=== PATIENT | female | born 1985 | race Caucasian/White ===

== ENCOUNTER 2023-08-25 20:44 | Emergency (ER) | payer BC, SELFPAY ==
[2023-08-25 20:50] VITALS: BP 144/93; PULSE 85; RESP 18; TEMP 36.9; O2SAT 99; BMI 30.7
--- NOTE | 2023-08-25 20:54 | ED.ABDPAIN1 ---
Documented by User: ABILIO Mast 08/25/23 22:00 HPI - Abdominal Pain General Chief Complaint: Abdominal Pain Stated Complaint: ABdominal Pain Time Seen by Provider: 08/25/23 20:48 Source: patient and family History of Present Illness HPI narrative: patient is a 38-year-old female who presents to the emergency department for the evaluation of abdominal pain that began yesterday. She states yesterday she had sharp pain in the epigastrium which resolved, today she was feeling achy pain in the low abdomen but it has become more significant in the last several hours. She states she has been having diarrhea for the last six months. She had one episode of emesis yesterday. She has had no fevers, urinary symptoms. She has had previous cholecystectomy and has a history of GERD. She is scheduled for an endoscopy/colonoscopy in the next two weeks due to unintended weight loss. She is not concerned for . No medications taken prior to arrival. Related Data Home Medications Medication Instructions Recorded Confirmed albuterol sulfate 90 mcg/actuation inhalation 08/25/23 aerosol inhaler ondansetron 4 mg disintegrating mg 08/25/23 tablet pantoprazole 40 mg tablet,delayed mg PO 08/25/23 release Allergies Allergy/AdvReac Type Severity Reaction Status Date / Time No Known Drug Allergies Allergy Verified 08/25/23 20:55 Review of Systems ROS Constitutional Denies: fever or chills Cardiovascular Denies: chest pain Respiratory Denies: shortness of breath or cough Gastrointestinal Reports: abdominal pain, vomiting and diarrhea Genitourinary Denies: painful urination Musculoskeletal Denies: back pain or neck pain Integumentary/Breast Denies: rash Neurological Denies: headache Hematologic/Lymphatic Denies: easy bruising [facility] Medical History (Updated 08/25/23 @ 23:30 by Trupti Haines MD) FH: cholecystectomy ?Z83.79 - Family history of other diseases of the digestive system (ICD-10) Exam Narrative Exam Narrative: Gen.: Awake, alert, in no distress Head: Normocephalic, atraumatic ENT: Moist mucous membranes Respiratory: No respiratory distress, lungs clear bilaterally Cardio: Regular rate and rhythm Gastrointestinal: Abdomen is soft, nondistended and minimally tender in the epigastrium, minimally tender in the left lower quadrant of the abdomen, no pain out of proportion on exam, no guarding or rebound Extremities: Moves extremities equally Psych: Normal mood and affect Neuro: No focal neuro deficit Skin: Warm, dry, intact Constitutional Vital Signs, click to edit/add: Last Vital Signs Temp 98.4 F 08/25/23 20:50 Pulse 85 08/25/23 20:50 Resp 18 08/25/23 20:50 BP 144/93 H 08/25/23 20:50 Pulse Ox 99 08/25/23 20:50 O2 Del Method Room Air 08/25/23 20:50 Course Vital Signs Vital signs: Vital Signs Temperature 98.4 F 08/25/23 20:50 Pulse Rate 85 08/25/23 20:50 Respiratory Rate 18 08/25/23 20:50 Blood Pressure 144/93 H 08/25/23 20:50 Pulse Oximetry 99 08/25/23 20:50 Oxygen Delivery Method Room Air 08/25/23 20:50 Temperature 98.4 F 08/25/23 20:50 Pulse Rate 85 08/25/23 20:50 Respiratory Rate 18 08/25/23 20:50 Blood Pressure 144/93 H 08/25/23 20:50 Pulse Oximetry 99 08/25/23 20:50 Oxygen Delivery Method Room Air 08/25/23 20:50 MDM - Abdominal Pain MDM Narrative Medical decision making narrative: 2199: patient medicated with IV fluids, morphine, Zofran, Levsin. Lab studies reviewed and noted with white blood cell count 12.6, potassium 3.1 which was replenished with oral potassium chloride. Bilirubin is minimally elevated, patient has had a previous cholecystectomy and LFTs are within normal limits. CT of the abdomen and pelvis is pending at this time, case turned over to attending physician for disposition. Medical Records Attestation: I reviewed the patient's medical records. Lab Data Attestation: I reviewed the patient's lab results. Labs: Lab Results 08/25/23 08/25/23 Range/Units 20:55 21:25 WBC 12.6 H (4.0-11.0) 10^3/uL RBC 4.51 (4.20-5.40) 10^6/uL Hgb 14.4 (12.0-16.0) g/dL Hct 43.4 (36.0-48.0) % MCV 96.2 (81.0-99.0) fL MCH 31.9 (26.7-34.0) pg MCHC 33.2 (29.9-35.2) g/dL RDW 12.5 (11.0-15.0) % Plt Count 333 (150-450) 10^3/uL MPV 9.3 L (9.5-13.5) fL Neut % (Auto) 67.8 (43.0-75.0) % Lymph % (Auto) 23.4 (20.5-60.0) % [place] % (Auto) 7.0 (1.7-12.0) % Eos % (Auto) 1.3 (0.9-7.0) % Baso % (Auto) 0.2 (0.2-2.0) % Neut # (Auto) 8.6 H (1.4-6.5) 10^3/uL Lymph # (Auto) 3.0 (1.2-3.8) 10^3/uL [place] # (Auto) 0.9 H (0.3-0.8) 10^3/uL Eos # (Auto) 0.2 (0.0-0.7) 10^3/uL Baso # (Auto) 0.0 (0.0-0.1) 10^3/uL Abs Immat Gran (auto) 0.04 H (0.00-0.03) 10^3/uL Imm/Tot Granulo (auto) 0.3 (0.0-0.5) % Sodium 138 (136-145) mmol/L Potassium 3.1 L (3.5-5.1) mmol/L Chloride 103 (98-107) mmol/L Carbon Dioxide 27.4 (21.0-32.0) mmol/L Anion Gap 10.7 BUN 13.0 (7.0-18.0) mg/dL Creatinine 0.73 (0.55-1.02) mg/dL Est GFR ( Amer) >60 (>=60) Est GFR (Non-Af Amer) >60 (>=60) BUN/Creatinine Ratio 17.8 Glucose 102 (74-106) mg/dL Lactate 0.7 (0.4-2.0) mmol/L Calcium 8.6 (8.5-10.1) mg/dL Total Bilirubin 1.5 H (0.2-1.0) mg/dL AST 19 (15-37) U/L ALT 30 (14-59) U/L Alkaline Phosphatase 77 (46-116) U/L Total Protein 7.2 (6.4-8.2) g/dL Albumin 3.9 (3.4-5.0) g/dL Globulin 3.3 g/dL Albumin/Globulin Ratio 1.2 Lipase 36.0 (16.0-77.0) U/L Serum HCG, Qual Negative (NEGATIVE) Urine Color Lt. yellow (YELLOW) Urine Clarity Clear (CLEAR) Urine pH 6.0 (5.0-9.0) Ur Specific [place] 1.010 (1.005-1.025) Urine Protein 30 A (NEG/TRACE) mg/dL Urine Glucose (UA) Negative (NEGATIVE) mg/dL Urine Ketones Negative (NEGATIVE) mg/dL Urine Occult Blood Large A (NEGATIVE) Urine Nitrite Negative (NEGATIVE) Urine Bilirubin Negative (NEGATIVE) Urine Urobilinogen 0.2 (0.2-1.0) EU/dL Ur Leukocyte Esterase Trace A (NEGATIVE) Urine RBC >100 A (0-2) #/HPF Urine WBC 2-5 A (NONE SEEN) #/HPF Ur Squamous Epith Cells Moderate A (NONE/RARE) #/LPF Urine Crystals Seen A (None Seen) #/HPF Calcium Oxalate Crystal Rare Urine Bacteria None seen (NONE SEEN) #/HPF Urine Casts None seen (NONE SEEN) #/LPF Urine Mucus None seen (NONE SEEN) Discharge Plan Discharge Chief Complaint: Abdominal Pain Clinical Impression: Abdominal pain, Ureteritis, Kidney stone on left side Patient Disposition: Home, Self-Care Time of Disposition Decision: 23:29 Condition: Good Prescriptions / Home Meds: No Action pantoprazole 40 mg tablet,delayed release (DR/EC) PO albuterol sulfate 90 mcg/actuation HFA aerosol inhaler INHALATION ondansetron 4 mg tablet,disintegrating Instructions: Kidney Stones (ED) Additional Instructions: Follow-up with Dr. Manley as soon as an appointment is available. Antibiotic as directed, pain medication and nausea medication as needed. Drink plenty of fluids. Return to emergency department for intractable pain, fevers, chills, intractable nausea vomiting or any concerns. Stand Alone Forms: Portal Instructions Referrals: BRENDA HUERTA [Primary Care Provider] - 1 week Documented by User: Trupti Haines MD 08/25/23 23:30 HPI - Abdominal Pain General Chief Complaint: Abdominal Pain Stated Complaint: ABdominal Pain Time Seen by Provider: 08/25/23 20:48 Related Data Home Medications Medication Instructions Recorded Confirmed albuterol sulfate 90 mcg/actuation inhalation 08/25/23 aerosol inhaler ondansetron 4 mg disintegrating mg 08/25/23 tablet pantoprazole 40 mg tablet,delayed mg PO 08/25/23 release Allergies Allergy/AdvReac Type Severity Reaction Status Date / Time No Known Drug Allergies Allergy Verified 08/25/23 20:55 PFSH PFSH Medical History (Updated 08/25/23 @ 23:30 by Trupti Haines MD) FH: cholecystectomy ?Z83.79 - Family history of other diseases of the digestive system (ICD-10) Exam Constitutional Vital Signs, click to edit/add: Last Vital Signs Temp 98.4 F 08/25/23 20:50 Pulse 85 08/25/23 20:50 Resp 18 08/25/23 20:50 BP 144/93 H 08/25/23 20:50 Pulse Ox 99 08/25/23 20:50 O2 Del Method Room Air 08/25/23 20:50 Course Vital Signs Vital signs: Vital Signs Temperature 98.4 F 08/25/23 20:50 Pulse Rate 85 08/25/23 20:50 Respiratory Rate 18 08/25/23 20:50 Blood Pressure 144/93 H 08/25/23 20:50 Pulse Oximetry 99 08/25/23 20:50 Oxygen Delivery Method Room Air 08/25/23 20:50 Temperature 98.4 F 08/25/23 20:50 Pulse Rate 85 08/25/23 20:50 Respiratory Rate 18 08/25/23 20:50 Blood Pressure 144/93 H 08/25/23 20:50 Pulse Oximetry 99 08/25/23 20:50 Oxygen Delivery Method Room Air 08/25/23 20:50 MDM - Abdominal Pain MDM Narrative Medical decision making narrative: 2199: patient medicated with IV fluids, morphine, Zofran, Levsin. Lab studies reviewed and noted with white blood cell count 12.6, potassium 3.1 which was replenished with oral potassium chloride. Bilirubin is minimally elevated, patient has had a previous cholecystectomy and LFTs are within normal limits. CT of the abdomen and pelvis is pending at this time, case turned over to attending physician for disposition. Patient was seen and evaluated in conjunction with the physician data control assistant. Please refer to her full H and P. Patient was seen and evaluated. She presents for evaluation of left lower quadrant abdominal pain. She has a history of kidney stones. She last had kidney stones approximately 3 years ago and followed up with Dr. Manley in [place]. Labs are reviewed. Urinalysis was reviewed. She was positive for trace leukocyte esterase but it is appears to be a contaminated sample with squamous epithelial cells. CT scan shows 2 kidney stones in the left ureter without hydronephrosis but with the radiologist diagnosis of ureteritis. She is medicated emergency department with 1 g of IV Rocephin for this finding on the CT scan. She does not require any additional pain medications at this time. She'll be discharged home with prescription for [place] after being given 2 to take home to use as needed until she can get her prescription filled, Zofran and 500 mg Keflex to take for the next 7 days. She is negative with this plan. She is hemodynamically stable for discharge. She is not toxic. She is not having any fevers or chills. Lab Data Labs: Lab Results 08/25/23 08/25/23 Range/Units 20:55 21:25 WBC 12.6 H (4.0-11.0) 10^3/uL RBC 4.51 (4.20-5.40) 10^6/uL Hgb 14.4 (12.0-16.0) g/dL Hct 43.4 (36.0-48.0) % MCV 96.2 (81.0-99.0) fL MCH 31.9 (26.7-34.0) pg MCHC 33.2 (29.9-35.2) g/dL RDW 12.5 (11.0-15.0) % Plt Count 333 (150-450) 10^3/uL MPV 9.3 L (9.5-13.5) fL Neut % (Auto) 67.8 (43.0-75.0) % Lymph % (Auto) 23.4 (20.5-60.0) % [place] % (Auto) 7.0 (1.7-12.0) % Eos % (Auto) 1.3 (0.9-7.0) % Baso % (Auto) 0.2 (0.2-2.0) % Neut # (Auto) 8.6 H (1.4-6.5) 10^3/uL Lymph # (Auto) 3.0 (1.2-3.8) 10^3/uL [place] # (Auto) 0.9 H (0.3-0.8) 10^3/uL Eos # (Auto) 0.2 (0.0-0.7) 10^3/uL Baso # (Auto) 0.0 (0.0-0.1) 10^3/uL Abs Immat Gran (auto) 0.04 H (0.00-0.03) 10^3/uL Imm/Tot Granulo (auto) 0.3 (0.0-0.5) % Sodium 138 (136-145) mmol/L Potassium 3.1 L (3.5-5.1) mmol/L Chloride 103 (98-107) mmol/L Carbon Dioxide 27.4 (21.0-32.0) mmol/L Anion Gap 10.7 BUN 13.0 (7.0-18.0) mg/dL Creatinine 0.73 (0.55-1.02) mg/dL Est GFR ( Amer) >60 (>=60) Est GFR (Non-Af Amer) >60 (>=60) BUN/Creatinine Ratio 17.8 Glucose 102 (74-106) mg/dL Lactate 0.7 (0.4-2.0) mmol/L Calcium 8.6 (8.5-10.1) mg/dL Total Bilirubin 1.5 H (0.2-1.0) mg/dL AST 19 (15-37) U/L ALT 30 (14-59) U/L Alkaline Phosphatase 77 (46-116) U/L Total Protein 7.2 (6.4-8.2) g/dL Albumin 3.9 (3.4-5.0) g/dL Globulin 3.3 g/dL Albumin/Globulin Ratio 1.2 Lipase 36.0 (16.0-77.0) U/L Serum HCG, Qual Negative (NEGATIVE) Urine Color Lt. yellow (YELLOW) Urine Clarity Clear (CLEAR) Urine pH 6.0 (5.0-9.0) Ur Specific [place] 1.010 (1.005-1.025) Urine Protein 30 A (NEG/TRACE) mg/dL Urine Glucose (UA) Negative (NEGATIVE) mg/dL Urine Ketones Negative (NEGATIVE) mg/dL Urine Occult Blood Large A (NEGATIVE) Urine Nitrite Negative (NEGATIVE) Urine Bilirubin Negative (NEGATIVE) Urine Urobilinogen 0.2 (0.2-1.0) EU/dL Ur Leukocyte Esterase Trace A (NEGATIVE) Urine RBC >100 A (0-2) #/HPF Urine WBC 2-5 A (NONE SEEN) #/HPF Ur Squamous Epith Cells Moderate A (NONE/RARE) #/LPF Urine Crystals Seen A (None Seen) #/HPF Calcium Oxalate Crystal Rare Urine Bacteria None seen (NONE SEEN) #/HPF Urine Casts None seen (NONE SEEN) #/LPF Urine Mucus None seen (NONE SEEN) Imaging Data CT scan - abdomen: Radiologist's impression: [facility] [place] [id number] CT Scan Report Signed Patient: JEFFREY YANG MR#: [id number] : 1985 Acct:[id number] Age/Sex: 38 / F ADM Date: 08/25/23 Loc: ER Attending Dr: Ordering Physician: Pradeep Nguyen Date of Service: 08/25/23 Procedure(s): CT abdomen pelvis w con Accession Number(s): [id number] cc: BRENDA HUERTA ~ The [address] [address] Patient Name: JEFFREY YANG MRN: [id number] date: 1985 Sex: F Assigned Patient Location: ER Current Patient Location: ED.MAIN Accession/Order Number: [id number] Exam Date: 08/25/2023 21:00 Report Date: 08/25/2023 23:00 At the request of: PRADEEP NGUYEN Procedure: CT abdomen pelvis w con CT ABDOMEN AND PELVIS WITH CONTRAST: INDICATION: Left lower quad abdominal pain. COMPARISON: 03/02/2019. TECHNIQUE:Multiple thin section transaxial slices were acquired through the abdomen and pelvis with intravenous contrast. Coronal and sagittal reconstructed images were reviewed. Oral contrastWas not administered. FINDINGS: LOWER CHEST: There are similar pleural-based pulmonary nodules in the lung bases. LIVER: The liver is unremarkable. GALLBLADDER AND BILIARY SYSTEM: There is intrahepatic ductal dilation. This is most likely due to the postsurgical status of the patient. The gallbladder surgically absent. SPLEEN: The spleen is unremarkable. PANCREAS: The pancreas is unremarkable. ADRENAL GLANDS: The adrenal glands are unremarkable. KIDNEYS AND URETERS: There are 2 mid left ureteral calculi located immediately adjacent to each other. The proximal calculus measures 4 mm in the more distal calculus measures 6 mm. There is periureteral fat stranding and enhancement of the wall of the ureter consistent with ureteritis. Despite the presence of the calculi, no significant hydronephrosis of the left kidney is appreciated. There is no right hydronephrosis. The right ureter is within normal limits without obstructing urologic calcifications. Simple bilateral renal cysts are present. VASCULATURE: Vascularity is unremarkable. PERITONEUM/RETROPERITONEUM: Peritoneum/retroperitoneum is unremarkable. LYMPH NODES: No suspicious lymphadenopathy. GASTROINTESTINAL TRACT: The bowel is normal in caliber.There is chronic colonic diverticulosis of the colon without acute inflammation.The appendix is mildly distended without definitive periappendiceal fat stranding. BLADDER: The urinary bladder is unremarkable. REPRODUCTIVE SYSTEM: Reproductive system is unremarkable. BODY WALL: Unremarkable. BONES: Osseous structures are unremarkable. CT/CT abdomen pelvis w con IMPRESSION: 1. There are 2 mid left ureteral calculi measuring 4 mm and 6 mm. There is periureteral fat stranding and wall enhancement consistent with ureteritis. Despite the presence of these calculi, there is no significant hydronephrosis of the left kidney. Discharge Plan Discharge Chief Complaint: Abdominal Pain Clinical Impression: Abdominal pain, Ureteritis, Kidney stone on left side Patient Disposition: Home, Self-Care Time of Disposition Decision: 23:29 Condition: Good Prescriptions / Home Meds: No Action pantoprazole 40 mg tablet,delayed release (DR/EC) PO albuterol sulfate 90 mcg/actuation HFA aerosol inhaler INHALATION ondansetron 4 mg tablet,disintegrating Instructions: Kidney Stones (ED) Additional Instructions: Follow-up with Dr. Manley as soon as an appointment is available. Antibiotic as directed, pain medication and nausea medication as needed. Drink plenty of fluids. Return to emergency department for intractable pain, fevers, chills, intractable nausea vomiting or any concerns. Stand Alone Forms: Portal Instructions Referrals: BRENDA HUERTA [Primary Care Provider] - 1 week
--- NOTE | 2023-08-25 21:10 | PC.NURSE ---
Pt presents to ER for abdominal pain Pt states the pain is currently located in the LLQ Pt states sometimes the pain is located in the upper abdomen but today it is the LLQ Pt is tearful at time arrival, states she has had diarrhea on and off for 6 months Pt states she has experienced an unexplained 40 lb weight loss so she is scheduled to have an upper and lower scope in 2 weeks from now Pt has a history of kidney stones, GERD, gall bladder removal, and just recently had her period Pt denies any chance of or urinary symptoms
[2023-08-25 21:19] LABS: Basophils Percent Auto 0.2 % (0.2-2.0); Eosinophils Absolute Auto 0.2 10^3/uL (0.0-0.7); Eosinophils Percent Auto 1.3 % (0.9-7.0); Hematocrit 43.4 % (36.0-48.0); Hemoglobin 14.4 g/dL (12.0-16.0); Immature Granulocytes Abs Auto 0.04 10^3/uL (0.00-0.03); Immature Granulocytes Pct Auto 0.3 % (0.0-0.5); Lymphocytes Percent Auto 23.4 % (20.5-60.0); Mean Corpuscular HGB Conc 33.2 g/dL (29.9-35.2); Mean Corpuscular Hemoglobin 31.9 pg (26.7-34.0); Mean Corpuscular Volume 96.2 fL (81.0-99.0); Mean Platelet Volume 9.3 fL (9.5-13.5); Monocytes Absolute Auto 0.9 10^3/uL (0.3-0.8); Neutrophils Absolute Auto 8.6 10^3/uL (1.4-6.5); Neutrophils Percent Auto 67.8 % (43.0-75.0); Platelet Count 333 10^3/uL (150-450); Red Blood Count 4.51 10^6/uL (4.20-5.40); Red Cell Distribution Width 12.5 % (11.0-15.0); White Blood Count 12.6 10^3/uL (4.0-11.0)
[2023-08-25] MEDS: HYOSCYAMINE SULFATE 0.125 MG TAB.SUBL SL (21:25)
[2023-08-25] MEDS: 0.9 % SODIUM CHLORIDE 1,000 ML 1000 ML IV (21:25)
[2023-08-25] MEDS: ONDANSETRON PF 4 MG/2 ML VIAL IV (21:25)
[2023-08-25] MEDS: MORPHINE SULFATE 4 MG/ML VIAL IV (21:25)
[2023-08-25 21:30] LABS: HCG Qualitative NEGATIVE (NEGATIVE)
[2023-08-25 21:31] LABS: Alanine Aminotransferase 30 U/L (14-59); Albumin Globulin Ratio 1.2; Albumin Level 3.9 g/dL (3.4-5.0); Alkaline Phosphatase 77 U/L (46-116); Anion Gap 10.7; Aspartate Amino Transferase 19 U/L (15-37); BUN Creatinine Ratio 17.8; Bilirubin Total 1.5 mg/dL (0.2-1.0); Calcium 8.6 mg/dL (8.5-10.1); Carbon Dioxide 27.4 mmol/L (21.0-32.0); Chloride 103 mmol/L (98-107); Estimated GFR (African America >60 (>=60); Estimated GFR (Non-African Ame >60 (>=60); Globulin 3.3 g/dL; Glucose 102 mg/dL (74-106); Potassium 3.1 mmol/L (3.5-5.1); Sodium 138 mmol/L (136-145); Total Protein 7.2 g/dL (6.4-8.2)
[2023-08-25 21:34] LABS: Lactate/Lactic Acid 0.7 mmol/L (0.4-2.0)
[2023-08-25] MEDS: POTASSIUM CHLORIDE 10 MEQ ER TABLET 40 MEQ PO (22:27)
[2023-08-25 22:30] LABS: Bilirubin Urine NEGATIVE (NEGATIVE); Blood Urine LARGE (NEGATIVE); Clarity Urine CLEAR (CLEAR); Color Urine LT. YELLOW (YELLOW); Glucose Urine UA NEGATIVE (NEGATIVE); Ketones Urine NEGATIVE (NEGATIVE); Leukocyte Esterase Urine TRACE (NEGATIVE); Nitrite Urine NEGATIVE (NEGATIVE); Protein Urine 30 mg/dL (NEG/TRACE); Urobilinogen Urine 0.2 EU/dL (0.2-1.0)
[2023-08-25 22:31] LABS: Urine Microscopic Indicated YES
[2023-08-25 22:38] LABS: Bacteria Urine NONE SEEN #/HPF (NONE SEEN); Mucus Urine NONE SEEN (NONE SEEN); RBC Urine >100 #/HPF (0-2); Squamous Epithelial Cell Urine MODERATE #/LPF (NONE/RARE)
[2023-08-25 22:39] LABS: Calcium Oxalate Crystals Urine RARE; Crystals Seen? Seen #/HPF (None Seen)
[2023-08-25 22:40] LABS: Cast Seen? NONE SEEN #/LPF (NONE SEEN)
[2023-08-25] MEDS: CEFTRIAXONE 1,000 MG in 0.9 % SODIUM CHLORIDE 50 ML 100 MG IV (23:29)
[2023-08-26] MEDS: HYDROCODONE/ACET 5-325 MG TABLET 2 TAB PO (00:03)
== END 2023-08-26 00:08 | disposition home or self-care (01) ==
PROVIDERS: Physician Assistant; Emergency Provider Emergency Medicine; PCP Nurse Practitioner Family
DX: N20.0 Calculus of kidney (principal); N28.89 Other specified disorders of kidney and ureter; R10.9 Unspecified abdominal pain; K21.9 Gastro-esophageal reflux disease without esophagitis; Z90.49 Acquired absence of other specified parts of digestive tract; Z79.899 Other long term (current) drug therapy
CPT/HCPCS: 36415; 74177; 80053; 81001; 83605; 83690; 84703; 85025; 96361; 96365; 96375; 99285; Q9967

== ENCOUNTER 2024-07-27 08:07 | Emergency (ER) | payer OTHER, SELFPAY ==
[2024-07-27 08:13] VITALS: BP 131/83; PULSE 80; TEMP 37.2; O2SAT 98; BMI 29.5
--- OUTSIDE RECORDS SUMMARY | 2024-07-27 08:19 | XMS_ITS | CCD ---
Author Organization [facility] Care Team Providers Care Doper Name Role Phone Erin Wood Unavailable [phone] Noman Corona Unavailable ARELIS Wood Attending Provider ArturoadSimran Unavailable Erin Wood NP Unavailable [phone] NOEMY HONG Referring Unavailable DEBORAH CORONEL Attending Unavailable ERIN WOOD Referring Unavailable NOEMY HONG Attending Unavailable ARELIS Wood Primary Care Provider ARELIS Wood Attending Provider Erin Wood Attending Unavailable Erin Wood Primary Care Unavailable Erin Wood Admitting Unavailable Erin Wood NP Unavailable MD Noman Naylor Jr Emergency Provider DO Gutierrez Clement Admit Provider [phone] DO Gutierrez Clement Attending Provider MD Rodrigo Shi Other Provider MD Rodrigo Shi Admit Provider MD Rodrigo Shi Attending Provider Medications Current Medications Medication Drug Class(es) Dates Sig (Normalized) Sig (Original) [id number] 200 actuat albuterol 0.09 mg/actuat metered dose inhaler (2 sources) beta2-Adrenergic Agonist Start: 07-11-2023 Albuterol Sulfate HFA 108 (90 Base) MCG/ACT 1 or 2 puff as needed Inhalation every 4 hrs for 30 day(s) Jul, Active Start: 07-11-2023 Albuterol Sulf ate HFA 108 (90 Base) MCG/ACT 1 or 2 puff as needed Inhalation every 4 hrs for 30 day(s) Jul, Not-Taking benzonatate 200 mg oral capsule (2 sources) Non-narcotic Antitussive Start: 01-27-2023 take 1 capsule by mouth three times daily as needed Benzonatate 200 MG 1 capsule Orally Three times a day as needed for 30 days Dec, Active diclofenac sodium 75 mg delayed release oral tablet (5 sources) Nonsteroidal Anti-inflammatory Drug Start: 07-02-2021 take 1 tablet by mouth every twelve hours Diclofenac Sodium 75 MG 1 tablet Orally Twice a day for 30 day(s) Jul, Active doxycycline monohydrate 100 mg oral tablet (2 sources) Tetracycline-class Drug Start: 01-27-2023 take 1 tablet by mouth every twelve hours Doxycycline Monohydrate 100 MG 1 tablet Orally Twice a day for 10 days Dec, Active fluconazole 150 mg oral tablet (2 sources) Azole Antifungal Start: 01-27-2023 take 1 tablet by mouth every twenty-four hours Fluconazole 150 MG 1 tablet Orally daily for 1 days start at first symptoms take first pill and then if continues to have symptom may repeat in 72 hours Dec, Active ondansetron 4 mg disintegrating oral tablet (7 sources) Serotonin-3 Receptor Antagonist Start: 07-26-2023 take 1 tablet by mouth three times daily as needed Ondansetron 4 MG 1 tablet on the tongue and allow to dissolve Orally three times per day as needed for 30 days Jul, Active Start: 07-19-2023 take 1 tablet by mouth once da marley Zofran 4 MG 1 tablet Orally Once a day for 30 days Jul, Active pantoprazole 40 mg delayed release oral tablet (20 sources) Proton Pump Inhibitor Start: 01-11-2024 take 40 mg by mouth twice daily Pantoprazole Active 40 MG PO Twice daily January 11, 2024 12:00am Start: 07-19-2023 take 1 tablet by dileep every twelve hours Pantoprazole Sodium 40 MG 1 tablet Orally TWICE A DAY for 90 days Jul, Active Start: 08-06-2020 take 1 tablet by dileep th every twenty-four hours Pantoprazole Sodium 40 MG 1 tablet Orally Once a day for 30 day(s) Jul, Not-Taking take 1 tablet by dileep th once daily pantoprazole DR (PROTONIX) 20 mg tablet Take 20 mg by mouth once daily. Active take 1 tablet by dileep th twice daily Pantoprazole Sodium 40 mg 1 tablet Orally bid for 90 days Active Comment on above: Take 20 mg by mouth once daily. sulfamethoxazole 800 mg / trimethoprim 160 mg oral tablet (4 sources) Dihydrofolate Reductase Inhibitor Antibacterial, Sulfonamide Antimicrobial Start: 08-10-20 take 1 tablet by mouth every twelve hours Sulfamethoxazole-T rimethoprim 800-160 MG 1 tablet Orally Twice a day for 7 days Jul, Active {11 (varenicline 0.5 MG Oral Tablet) / 42 (varenicline 1 MG Oral Tablet) } Pack (2 sources) Partial Cholinergic Nicotinic Agonist Start: 09-14-20 Varenicline Tartrate (Starter) 0.5 MG X 11 & 1 MG X 42 as directed Orally bid for 30 days Aug, Active Completed/Discontinued Medications Medication Drug Class(es) Dates Sig (Normalized) Sig (Original) amoxicillin 875 mg / clavulanate 125 mg oral tablet (2 sources) Penicillin-class Antibacterial Start: 07-11-2023 take 1 tablet by mouth every twelve hours Amoxicillin-Pot Clavulanate 875-125 MG 1 tablet Orally every 12 hrs for 10 days Jul, Not-Taking 24 hr mirabegron 25 mg extended release oral tablet (5 sources) beta3-Adrenergic Agonist take 1 tablet by mouth every twenty-four hours Myrbetriq 25 MG 1 tablet Orally Once a day Not-Taking Triamcinolone (13 sources) Corticosteroid Start: 07-02-2021 Kenalog -40 mg Jul, 40 mg Problems Active Problems Problem Classification Problem Date Documented Date Episodic/Chronic Abdominal hernia (18 sources) Hiatal hernia; Translations: [Diaphragmatic hernia without obstruction or gangrene] Episodic Abdominal pain (2 sources) Left upper quadrant pain; Translations: [Left upper quadrant pain] 07-26-2024 Episodic Administrative/socia l admission (1 source) Tobacco abuse counseling Episodic Appendicitis and other appendiceal conditions (4 sources) Acute appendicitis; Translations: [Unspecified acute appendicitis] 07-26-2024 Episodic Calculus of urinary tract (19 sources) Kidney stone; Translations: [Calculus of kidney] Episodic Chronic obstructive pulmonary disease and bronchiectasis (1 source) Bronchitis, not specified as acute or chronic Episodic Esophageal disorders (20 sources) Gastroesophageal reflux disease without esophagitis; Translations: [Gastro-esophageal reflux disease without esophagitis] Onset: 07-27-2021 Resolved: 11-11-2021 Chronic Fluid and electrolyte disorders (3 sources) Dehydration; Translations: [Dehydration] 06-29-2024 Episodic Gastritis and duodenitis (18 sources) Superficial gastritis; Translations: [Chronic superficial gastritis without bleeding] Chronic Gastritis and duodenitis (2 sources) Gastritis; Translations: [Gastritis, unspecified, without bleeding] 07-26-2024 Episodic Genitourinary symptoms and ill-defined conditions (1 source) Urgency of urination Episodic Inflammatory diseases of female pelvic organs (1 source) Acute vaginitis Episodic Joint disorders and dislocations; trauma-related (16 sources) Derangement of left knee; Translations: [Unspecified internal derangement of left knee] Chronic Nausea and vomiting (3 sources) Nausea and vomiting; Translations: [Nausea with vomiting, unspecified] Onset: 09-05-2023 08-10-2023 Episodic Neoplasms of unspecified nature or uncertain behavior (18 sources) Neoplastic disease of uncertain behavior; Translations: [Neoplasm of uncertain behavior, unspecified] Episodic Nutritional deficiencies (20 sources) Vitamin D deficiency; Translations: [Vitamin D deficiency, unspecified] Chronic Nutritional deficiencies (20 sources) Iron deficiency; Translations: [Iron deficiency] Episodic Other connective tissue disease (18 sources) Plantar fasciitis of left foot; Translations: [Plantar fascial fibromatosis] Episodic Other lower respiratory disease (18 sources) Multiple nodules of lung; Translations: [Other nonspecific abnormal finding of lung field] Episodic Other lower respiratory disease (18 sources) Solitary nodule of lung; Translations: [Solitary pulmonary nodule] Episodic Other non-traumatic joint disorders (18 sources) Anterior knee pain; Translations: [Pain in left knee] Episodic Other nutritional; endocrine; and metabolic disorders (20 sources) Body mass index 30+ - obesity; Translations: [Body mass index (BMI) 36.0-36.9, adult] Chronic Other nutritional; endocrine; and metabolic disorders (1 source) Body mass index (BMI) 36.0-36.9, adult; Translations: [BMI 36.0-36.9,adult Z68.36] Onset: 07-27-2021 Resolved: 07-27-2021 Chronic Other nutritional; endocrine; and metabolic disorders (3 sources) Hypomagnesemia; Translations: [Hypomagnesemia] 06-29-2024 Chronic Other nutritional; endocrine; and metabolic disorders (2 sources) Weight loss; Translations: [Abnormal weight loss] 08-10-2023 Episodic Other nutritional; endocrine; and metabolic disorders (1 source) Abnormal weight loss; Translations: [Loss of weight] Onset: 09-05-2023 Episodic Other screening for suspected conditions (not mental disorders or infectious disease) (14 sources) Encounter for screening for other metabolic disorders; Translations: [Encounter for screening for lipoid disorders] Onset: 07-12-2024 Episodic Other upper respiratory infections (3 sources) Acute pharyngitis, unspecified; Translations: [Acute maxillary sinusitis, unspecified] Onset: 01-15-2022 Resolved: 01-15-2022 Episodic Residual codes; unclassified (18 sources) Tobacco user; Translations: [Tobacco use] Episodic Residual codes; unclassified (2 sources) Tobacco use Episodic Substance-related disorders (3 sources) Marijuana user; Translations: [Cannabis use, unspecified, uncomplicated] Onset: 09-05-2023 08-10-2023 Episodic Past or Other Problems Problem Classification Problem Date Documented Da te Episodic/Chronic Headache; including migraine (1 source) Headache; Translations: [Headache] Onset: 03-04-2020 Resolved: 03-04-2020 03-04-2020 Episodic Skin and subcutaneous tissue infections (1 source) Cutaneous abscess, unspecified; Translations: [Abscess L02.91] Onset: 08-10-2021 Resolved: 08-10-2021 Episodic Sprains and strains (1 source) Sprain of posterior cruciate ligament of left knee, initial encounter Onset: 11-16-2021 Resolved: 11-16-2021 Episodic Unclassified (1 source) Acute cough R05.1 Results Test Name Value Interpretation Reference Range Facility Alanine aminotransferase [En zymatic activity/volume] in Serum or PlasmaOrdered By: Noman Naylor on 07-26-2024 ALT [Catalytic activity/Vol] 9 U/L 7-52 [facility] Albumin [Mass/volume] in Ser um or Plasma by Bromocresol green (BCG) dye binding methoOrdered By: Noman Naylor on 07-26-2024 Albumin BCG dye [Mass/Vol] 4.6 g/dL 3.5-5.7 [facility] Alkaline phosphatase [Enzyma tic activity/volume] in Serum or PlasmaOrdered By: Noman Naylor on 07-26-2024 ALP [Catalytic activity/Vol] 68 U/L 34-104 [facility] Aspartate aminotransferase [ Enzymatic activity/volume] in Serum or PlasmaOrdered By: Noman Naylor on 07-26-2024 AST [Catalytic activity/Vol] 12 U/L Low 13-39 [facility] Bacteria [Presence] in Urine by AutomatedOrdered By: Noman Naylor on 07-26-2024 Bacteria Auto Ql (U) Rare [HPF] None Seen [facility] Basophils Auto (Bld) [#/Vol] Ordered By: Noman Naylor on 07-26-2024 Basophils (Bld) [#/Vol] 0.1 10*3/uL 0.0-0.2 [facility] Basophils/100 WBC Auto (Bld) Ordered By: Noman Naylor on 07-26-2024 Basophils/100 WBC (Bld) 0.5 % . [facility] Bilirubin Test strip Ql (U)O rdered By: Noman Naylor on 07-26-2024 Bilirubin Ql (U) Negative Negative [facility] Bilirubin.total [Mass/volume ] in Serum or PlasmaOrdered By: Noman Naylor on 07-26-2024 Bilirubin [Mass/Vol] 1.5 mg/dL High 0.3-1.0 [facility] Comment on above: Samples from patient s who have taken Naproxen have shown spurious elevation in Total Bilirubin levels. A metabolite of Naproxen, O-desmethylnaproxen, has been shown to interfere with the Randa method for measuring Total Bilirubin. Calcium [Mass/volume] in Ser um or PlasmaOrdered By: Noman Naylor on 07-26-2024 Calcium [Mass/Vol] 9.4 mg/dL 8.6-10.3 [facility] Carbon dioxide, total [Moles /volume] in Serum or PlasmaOrdered By: Noman Naylor on 07-26-2024 CO2 [Moles/Vol] 23.2 mmol/L 21.0-31.0 [facility] Chloride [Moles/volume] in S ander or PlasmaOrdered By: Noman Naylor on 07-26-2024 Chloride [Moles/Vol] 105 mmol/L 98-107 [facility] Color Auto (U)Ordered By: Leticia Naylor on 07-26-2024 Color (U) Light-yellow Yellow [facility] Creatinine [Mass/volume] in Serum or PlasmaOrdered By: Noman Naylor on 07-26-2024 Creatinine [Mass/Vol] 0.68 mg/dL 0.60-1.20 [facility] Eosinophils Auto (Bld) [#/Vo l]Ordered By: Noman Naylor on 07-26-2024 Eosinophils (Bld) [#/Vol] 0.1 10*3/uL 0.0-0.45 [facility] Eosinophils/100 WBC Auto (Bl d)Ordered By: Noman Naylor on 07-26-2024 Eosinophils/100 WBC (Bld) 0.8 % . [facility] Epithelial cells.squamous [# /area] in Urine sediment by Automated countOrdered By: Noman Naylor on 07-26-2024 Epithelial cells.squamous Auto (Urine sed) [#/Area] 1-2 [HPF] 0-2 [facility] Erythrocyte distribution wid th Auto (RBC) [Ratio]Ordered By: Noman Naylor on 07-26-2024 Erythrocyte distribution width (RBC) [Ratio] 13.1 % 11.9-15.3 [facility] Erythrocytes [#/area] in Uri ne sediment by Automated countOrdered By: Noman Naylor on 07-26-2024 RBC Auto (Urine sed) [#/Area] 5-9 [HPF] High 0-4 [facility] Globulin Calc (S) [Mass/Vol] Ordered By: Noman Naylor on 07-26-2024 Globulin (S) [Mass/Vol] 2.6 g/dL [facility] Glucose [Mass/volume] in Ser um or PlasmaOrdered By: Noman Naylor on 07-26-2024 Glucose [Mass/Vol] 163 mg/dL High 70-100 [facility] Comment on above: ADA recommended refe rence rangeRandom Glucose Reference Range is dependent on time and content of last meal. Glucose of more than 200 mg/dL in a nonstressed, ambulatory subject supports the diagnosis of Diabetes Mellitus. Glucose [Mass/volume] in Uri ne by Test stripOrdered By: Noman Naylor on 07-26-2024 Glucose Test strip (U) [Mass/Vol] 30 mg/dL High Normal [facility] HCG ( test) IA.rapi d Ql (U)Ordered By: Noman Naylor on 07-26-2024 HCG ( test) Ql (U) Negative [facility] Hematocrit Auto (Bld) [Volum e fraction]Ordered By: Noman Naylor on 07-26-2024 Hematocrit (Bld) [Volume fraction] 43.0 % 34.0-46.4 [facility] Hemoglobin Test strip Ql (U) Ordered By: Noman Naylor on 07-26-2024 Hemoglobin Ql (U) 2+ High Negative [facility] Hemoglobin [Mass/volume] in BloodOrdered By: Noman Naylor on 07-26-2024 Hemoglobin (Bld) [Mass/Vol] 14.8 g/dL 11.8-15.4 [facility] Hyaline casts [#/area] in Ur ine sediment by Automated countOrdered By: Noman Naylor on 07-26-2024 Hyaline casts Auto (Urine sed) [#/Area] None [LPF] 0-8 [facility] Ketones Test strip Ql (U)Ord ered By: Noman Naylor on 07-26-2024 Ketones Ql (U) 4+ High Negative [facility] Leukocyte esterase [Presence ] in Urine by Test stripOrdered By: Noman Naylor on 07-26-2024 Leukocyte esterase Test strip Ql (U) Negative Negative [facility] Leukocytes [#/area] in Urine sediment by Automated countOrdered By: Noman Naylor on 07-26-2024 WBC Auto (Urine sed) [#/Area] 1-2 [HPF] 0-4 [facility] Leukocytes [#/volume] correc douglas for nucleated erythrocytes in Blood by Automated counOrdered By: Noman Naylor on 07-26-2024 WBC corrected for nucl RBC Auto (Bld) [#/Vol] 17.2 10*3/uL High 3.8-11.6 [facility] Lipase [Enzymatic activity/v olume] in Serum or PlasmaOrdered By: Noman Naylor on 07-26-2024 Lipase [Catalytic activity/Vol] 11.0 U/L 11.0-82.0 [facility] Lymphocytes Auto (Bld) [#/Vo l]Ordered By: Noman Naylor on 07-26-2024 Lymphocytes (Bld) [#/Vol] 2.0 10*3/uL 1.00-4.8 [facility] Lymphocytes/100 WBC Auto (Bl d)Ordered By: Noman Naylor on 07-26-2024 Lymphocytes/100 WBC (Bld) 11.4 % . [facility] MCH Auto (RBC) [Entitic mass ]Ordered By: Noman Naylor on 07-26-2024 MCH (RBC) [Entitic mass] 31.5 pg 24.7-34.3 [facility] MCHC Auto (RBC) [Mass/Vol]Or dered By: Noman Naylor on 07-26-2024 MCHC (RBC) [Mass/Vol] 34.3 g/dL 32.0-35.0 [facility] MCV Auto (RBC) [Entitic vol] Ordered By: Noman Naylor on 07-26-2024 MCV (RBC) [Entitic vol] 91.6 fL 80-100 [facility] Monocyte distribution width [Entitic volume] in Blood by AutomatedOrdered By: Noman Naylor on 07-26-2024 Monocyte distribution width Auto (Bld) [Entitic vol] 16.88 % 0.00-20.00 [facility] Monocytes Auto (Bld) [#/Vol] Ordered By: Noman Naylor on 07-26-2024 Monocytes (Bld) [#/Vol] 0.6 10*3/uL 0.0-0.8 [facility] Monocytes/100 WBC Auto (Bld) Ordered By: Noman Naylor on 07-26-2024 Monocytes/100 WBC (Bld) 3.8 % . [facility] Mucus [Presence] in Urine by AutomatedOrdered By: Noman Naylor on 07-26-2024 Mucus Auto Ql (U) Rare [LPF] [facility] Neutrophils Auto (Bld) [#/Vo l]Ordered By: Noman Naylor on 07-26-2024 Neutrophils (Bld) [#/Vol] 14.4 10*3/uL High 1.8-7.7 [facility] Neutrophils/100 WBC Auto (Bl d)Ordered By: Noman Naylor on 07-26-2024 Neutrophils/100 WBC (Bld) 83.5 % . [facility] Nitrite Test strip Ql (U)Ord ered By: Noman Naylor on 07-26-2024 Nitrite Ql (U) Negative Negative [facility] No Panel InformationOrdered By: Noman Naylor on 07-26-2024 Estimated GFR (CKD-EPI) > 60.0 mL/Min [facility] Creatinine Clearance (Chem 106.25 [facility] Nucleated erythrocytes [Pres ence] in Blood by Automated countOrdered By: Noman Naylor on 07-26-2024 Nucleated RBC Auto Ql (Bld) 0.0 /100{WBC} 0-0.5 [facility] Platelet mean volume Auto (B ld) [Entitic vol]Ordered By: Noman Naylor on 07-26-2024 Platelet mean volume (Bld) [Entitic vol] 7.6 fL 6.3-10.7 [facility] Platelets Auto (Bld) [#/Vol] Ordered By: Noman Naylor on 07-26-2024 Platelets (Bld) [#/Vol] 345 10*3/uL 150-450 [facility] Potassium [Moles/volume] in Serum or PlasmaOrdered By: Noman Naylor on 07-26-2024 Potassium [Moles/Vol] 3.5 mmol/L 3.5-5.1 [facility] Protein Test strip (U) [Mass /Vol]Ordered By: Noman Naylor on 07-26-2024 Protein (U) [Mass/Vol] Negative Negative [facility] Protein [Mass/volume] in Ser um or PlasmaOrdered By: Noman Naylor on 07-26-2024 Protein [Mass/Vol] 7.2 g/dL 6.4-8.9 [facility] RBC Auto (Bld) [#/Vol]Ordere d By: Noman Naylor on 07-26-2024 RBC (Bld) [#/Vol] 4.69 10*6/uL 3.60-5.00 [facility] Serum or plasma albumin/glob ulin mass ratioOrdered By: Noman Naylor on 07-26-2024 Albumin/Globulin [Mass ratio] 1.8 {ratio} [facility] Serum or plasma anion gap de terminationOrdered By: Noman Naylor on 07-26-2024 Anion gap [Moles/Vol] 14.3 mmol/L 6.0-15.0 [facility] Sodium [Moles/volume] in Ser um or PlasmaOrdered By: Noman Naylor on 07-26-2024 Sodium [Moles/Vol] 139 mmol/L 136-145 [facility] Specific gravity Test strip (U) [Rel density]Ordered By: Noman Naylor on 07-26-2024 Specific gravity (U) [Rel density] 1.019 1.001-1.030 [facility] Urea nitrogen [Mass/volume] in Serum or PlasmaOrdered By: Noman Naylor on 07-26-2024 Urea nitrogen [Mass/Vol] 10 mg/dL 05-24 [facility] Urine appearanceOrdered By: Noman Naylor on 07-26-2024 Appearance (U) Clear Clear [facility] Urobilinogen Test strip (U) [Mass/Vol]Ordered By: Noman Naylor on 07-26-2024 Urobilinogen (U) [Mass/Vol] Normal mg/dL Normal [facility] WBC Auto (Bld) [#/Vol]Ordere d By: Noman Naylor on 07-26-2024 WBC (Bld) [#/Vol] 17.2 10*3/uL High 3.8-11.6 [facility] pH Test strip (U)Ordered By: Noman Naylor on 07-26-2024 pH (U) 6.0 [pH] 5.0-9.0 [facility] Alanine aminotransferase [En zymatic activity/volume] in Serum or PlasmaOrdered By: Erin Wood on 07-12-2024 ALT [Catalytic activity/Vol] 10 U/L [facility] Comment on above: Performed By: #### L IPID, CBC, CMP #### [address] Albumin [Mass/volume] in Ser um or Plasma by Bromocresol green (BCG) dye binding methoOrdered By: Erin Wood on 07-12-2024 Albumin BCG dye [Mass/Vol] 4.3 g/dL 3.5-5.7 [facility] Alkaline phosphatase [Enzyma tic activity/volume] in Serum or PlasmaOrdered By: Erin Wood on 07-12-2024 ALP [Catalytic activity/Vol] 71 U/L 34-104 [facility] Comment on above: Performed By: #### L IPID, CBC, CMP #### [facility] [address] [place] [address] Aspartate aminotransferase [ Enzymatic activity/volume] in Serum or PlasmaOrdered By: Erin Wood on 07-12-2024 AST [Catalytic activity/Vol] 11 U/L Low 13-39 [facility] Comment on above: Performed By: #### L IPID, CBC, CMP #### [facility] [address] [place] [address] Automated basophil %Ordered By: Erin Wood on 07-12-2024 Basophils/100 WBC (Bld) 0.7 % . [facility] Comment on above: Performed By: #### L IPID, CBC, CMP #### [address] Automated basophil countOrde red By: Erin Wood on 07-12-2024 Basophils (Bld) [#/Vol] 0.1 10*3/uL 0.0-0.2 [facility] Comment on above: Result Comment: PERF ORMED BY: [place] [id number] PATHOLOGIST [employer]IOR [employer]INE[employer] ERIN BECK M.D. Performed By: #### L IPID, CBC, CMP #### [address] Automated blood monocyte cou ntOrdered By: Erin Wood on 07-12-2024 Monocytes (Bld) [#/Vol] 0.4 10*3/uL 0.0-0.8 [facility] Comment on above: Performed By: #### L IPID, CBC, CMP #### [address] Automated eosinophil %Ordere d By: Erin Wood on 07-12-2024 Eosinophils/100 WBC (Bld) 4.8 % . [facility] Comment on above: Performed By: #### L IPID, CBC, CMP #### [address] Automated eosinophil countOr dered By: Erin Wood on 07-12-2024 Eosinophils (Bld) [#/Vol] 0.3 10*3/uL 0.0-0.45 [facility] Comment on above: Performed By: #### L IPID, CBC, CMP #### [address] Automated monocyte %Ordered By: Erin Wood on 07-12-2024 Monocytes/100 WBC (Bld) 6.1 % . [facility] Comment on above: Performed By: #### L IPID, CBC, CMP #### [address] Automated neutrophil %Ordere d By: Erin Wood on 07-12-2024 Neutrophils/100 WBC (Bld) 59.8 % . [facility] Comment on above: Performed By: #### L IPID, CBC, CMP #### [address] Bilirubin.total [Mass/volume ] in Serum or PlasmaOrdered By: Erin Wood on 07-12-2024 Bilirubin [Mass/Vol] 0.9 mg/dL 0.3-1.0 [facility] Comment on above: Performed By: #### L IPID, CBC, CMP #### [address] Calcium [Mass/volume] in Ser um or PlasmaOrdered By: Erin Wood on 07-12-2024 Calcium [Mass/Vol] 9.1 mg/dL 8.6-10.3 [facility] Comment on above: Performed By: #### L IPID, CBC, CMP #### [facility] [address] Carbon dioxide, total [Moles /volume] in Serum or PlasmaOrdered By: Erin Wood on 07-12-2024 CO2 [Moles/Vol] 28.7 mmol/L 21.0-31.0 [facility] Comment on above: Performed By: #### L IPID, CBC, CMP #### [facility] [address] [place] [address] [place] Chloride [Moles/volume] in S ander or PlasmaOrdered By: Erin Wood on 07-12-2024 Chloride [Moles/Vol] 107 mmol/L 98-107 [facility] Comment on above: Performed By: #### L IPID, CBC, CMP #### [facility] [address] [place] [address] [place] Cholesterol [Mass/volume] in Serum or PlasmaOrdered By: Erin Wood on 07-12-2024 Cholesterol [Mass/Vol] 188 mg/dL 140-200 [facility] Comment on above: Chol less than 200 m g/dl low riskChol 201-239 mg/dl borderline riskChol 240 mg/dl and greater high risk Result Comment: Chol less than 200 mg/dl low risk Chol 201-239 mg/dl borderline risk Chol 240 mg/dl and greater high risk Performed By: #### L IPID, CBC, CMP #### [facility] [address] [place] [address] [place] Cholesterol in LDL Calc [Mas s/Vol]Ordered By: Erin Wood on 07-12-2024 Cholesterol in LDL [Mass/Vol] 131 mg/dL High 0-100 [facility] Comment on above: LDL ATP III CLASSIFI CATIONLDL less than 100 mg/dL OptimalLDL 100-129 mg/dL Near or above optimalLDL 130-159 mg/dL Borderline highLDL 160-189 mg/dL HighLDL greater than 189 mg/dL Very high Cholesterol in VLDL Calc [Ma ss/Vol]Ordered By: Erin Wood on 07-12-2024 Cholesterol in VLDL [Mass/Vol] 9 mg/dL [facility] Complete Blood Count Auto Di ffon 07-12-2024 Mean Corpuscular HGB Conc 34.4 g/dL Normal 32.0-35.0 [facility] Comment on above: Performed By: #### L IPID, CBC, CMP #### [address] NRBC% 0.2 /100{WBC} Normal 0-0.5 [facility] Comment on above: Performed By: #### L IPID, CBC, CMP #### [address] Comprehensive Metabolic Pane joey 07-12-2024 Albumin [Mass/Vol] 4.3 g/dL Normal 3.5-5.7 [facility] Comment on above: Performed By: #### L IPID, CBC, CMP #### [address] GFR/1.73 sq M.predicted MDRD (S/P/Bld) [Vol rate/Area] mL/min/{1.73_m2} Normal [facility] Comment on above: Performed By: #### L IPID, CBC, CMP #### [address] Creatinine [Mass/volume] in Serum or PlasmaOrdered By: Erin Wood on 07-12-2024 Creatinine [Mass/Vol] 0.62 mg/dL 0.60-1.20 [facility] Comment on above: Performed By: #### L IPID, CBC, CMP #### [address] Erythrocyte distribution wid th [Ratio] by Automated countOrdered By: Erin Wood on 07-12-2024 Erythrocyte distribution width (RBC) [Ratio] 13.1 % 11.9-15.3 [facility] Comment on above: Performed By: #### L IPID, CBC, CMP #### [facility] [address] Erythrocytes [#/volume] in B lood by Automated countOrdered By: Erin Wood on 07-12-2024 RBC (Bld) [#/Vol] 4.51 10*6/uL 3.60-5.00 [facility] Comment on above: Performed By: #### L IPID, CBC, CMP #### [facility] [address] [place] [address] [place] Glucose [Mass/volume] in Ser um or PlasmaOrdered By: Erin Wood on 07-12-2024 Glucose [Mass/Vol] 95 mg/dL 70-100 [facility] Comment on above: ADA recommended refe rence rangeRandom Glucose Reference Range is dependent on time and content of last meal. Glucose of more than 200 mg/dL in a nonstressed, ambulatory subject supports the diagnosis of Diabetes Mellitus. Result Comment: Blessing om Glucose Reference Range is dependent on time and content of last meal. Glucose of more than 200 mg/dL in a nonstressed, ambulatory subject supports the diagnosis of Diabetes Mellitus. ADA recommended reference range Performed By: #### L IPID, CBC, CMP #### [facility] [address] Hematocrit [Volume Fraction] of Blood by Automated countOrdered By: Erin Wood on 07-12-2024 Hematocrit (Bld) [Volume fraction] 42.2 % 34.0-46.4 [facility] Comment on above: Performed By: #### L IPID, CBC, CMP #### [facility] [address] [place] [address] [place] Hemoglobin [Mass/volume] in BloodOrdered By: Erin Wood on 07-12-2024 Hemoglobin (Bld) [Mass/Vol] 14.5 g/dL 11.8-15.4 [facility] Comment on above: Performed By: #### L IPID, CBC, CMP #### [facility] [address] [place] [address] [place] Leukocytes [#/volume] correc douglas for nucleated erythrocytes in Blood by Automated counOrdered By: Erin Wood on 07-12-2024 WBC corrected for nucl RBC Auto (Bld) [#/Vol] 7.0 10*3/uL 3.8-11.6 [facility] Leukocytes [#/volume] in Blo od by Automated countOrdered By: Erin Wood on 07-12-2024 WBC (Bld) [#/Vol] 7.0 10*3/uL 3.8-11.6 [facility] Comment on above: Performed By: #### L IPID, CBC, CMP #### [facility] [address] Lipid Panelon 07-12-2024 LDL Cholesterol,Calculated 131 mg/dL High 0-100 [facility] Comment on above: Result Comment: LDL ATP III CLASSIFICATION LDL less than 100 mg/dL Optimal LDL 100-129 mg/dL Near or above optimal LDL 130-159 mg/dL Borderline high LDL 160-189 mg/dL High LDL greater than 189 mg/dL Very high Performed By: #### L IPID, CBC, CMP #### [facility] [address] Triglyceride w/Reflex 45 mg/dL Normal 0-149 [facility] Comment on above: Result Comment: TRIG ATP III CLASSIFICATION TRIG less than 150 mg/dL Normal TRIG 150-199 mg/dL Borderline high TRIG 200-500 mg/dL High TRIG greater than 500 mg/dL Very high Standard traceable to the Center for Disease Conrtrol and Prevention (CDC) test method. Performed By: #### L IPID, CBC, CMP #### [facility] [address] [place] [id number] [facility] VLDL CHOLESTEROL 9 mg/dL Normal [facility] Comment on above: Performed By: #### L IPID, CBC, CMP #### [facility] [address] [place] [address] [place] Lymphocytes [#/volume] in Bl ood by Automated countOrdered By: Erin Wood on 07-12-2024 Lymphocytes (Bld) [#/Vol] 2.0 10*3/uL 1.00-4.8 [facility] Comment on above: Performed By: #### L IPID, CBC, CMP #### [address] Lymphocytes/100 leukocytes i n Blood by Automated countOrdered By: Erin Wood on 07-12-2024 Lymphocytes/100 WBC (Bld) 28.6 % . [facility] Comment on above: Performed By: #### L IPID, CBC, CMP #### [address] MCH [Entitic mass] by Automa douglas countOrdered By: Erin Wood on 07-12-2024 MCH (RBC) [Entitic mass] 32.2 pg 24.7-34.3 [facility] Comment on above: Performed By: #### L IPID, CBC, CMP #### [address] MCHC Auto (RBC) [Mass/Vol]Or dered By: Erin Wood on 07-12-2024 MCHC (RBC) [Mass/Vol] 34.4 g/dL 32.0-35.0 [facility] MCV [Entitic volume] by Auto mated countOrdered By: Erin Wood on 07-12-2024 MCV (RBC) [Entitic vol] 93.4 fL 80-100 [facility] Comment on above: Performed By: #### L IPID, CBC, CMP #### [address] Neutrophils [#/volume] in Bl ood by Automated countOrdered By: Erin Wood on 07-12-2024 Neutrophils (Bld) [#/Vol] 4.2 10*3/uL 1.8-7.7 [facility] Comment on above: Performed By: #### L IPID, CBC, CMP #### [address] No Panel InformationOrdered By: Erin Wood on 07-12-2024 Estimated GFR (CKD-EPI) > 60.0 mL/Min [facility] Creatinine Clearance (Chem N/A [facility] Nucleated erythrocytes [Pres ence] in Blood by Automated countOrdered By: Erin Wood on 07-12-2024 Nucleated RBC Auto Ql (Bld) 0.2 /100{WBC} 0-0.5 [facility] Platelet mean volume [Entiti c volume] in Blood by Automated countOrdered By: Erin Wood on 07-12-2024 Platelet mean volume (Bld) [Entitic vol] 7.9 fL 6.3-10.7 [facility] Comment on above: Performed By: #### L IPID, CBC, CMP #### [facility] [address] [place] [address] Platelets [#/volume] in Bloo d by Automated countOrdered By: Erin Wood on 07-12-2024 Platelets (Bld) [#/Vol] 339 10*3/uL 150-450 [facility] Comment on above: Performed By: #### L IPID, CBC, CMP #### [facility] [address] [place] [address] [place] Potassium [Moles/volume] in Serum or PlasmaOrdered By: Erin Wood on 07-12-2024 Potassium [Moles/Vol] 3.9 mmol/L 3.5-5.1 [facility] Comment on above: Performed By: #### L IPID, CBC, CMP #### [facility] [address] [place] [address] [place] Protein [Mass/volume] in Ser um or PlasmaOrdered By: Erin Wood on 07-12-2024 Protein [Mass/Vol] 6.6 g/dL 6.4-8.9 [facility] Comment on above: Performed By: #### L IPID, CBC, CMP #### [facility] [address] [place] [address] Serum globulin measurement b y calculation (mass/volume)Ordered By: Erin Wood on 07-12-2024 Globulin (S) [Mass/Vol] 2.3 g/dL [facility] Comment on above: Performed By: #### L IPID, CBC, CMP #### [facility] [address] [place] [address] Serum or plasma albumin/glob ulin mass ratioOrdered By: Erin Wood on 07-12-2024 Albumin/Globulin [Mass ratio] 1.9 {ratio} [facility] Comment on above: Performed By: #### L IPID, CBC, CMP #### [facility] [address] [place] [address] Serum or plasma anion gap de terminationOrdered By: Erin Wood on 07-12-2024 Anion gap [Moles/Vol] 8.2 mmol/L 6.0-15.0 [facility] Comment on above: Performed By: #### L IPID, CBC, CMP #### [facility] [address] [place] [address] Serum or plasma high density lipoprotein (HDL) cholesterol measurementOrdered By: Erin Wood on 07-12-2024 Cholesterol in HDL [Mass/Vol] 48 mg/dL 23- [facility] Comment on above: HDL CHOL ATP-III CLA SSIFICATION Cardiovascular RiskHDL > or equal to 60 mg/dL LOWHDL < 40 mg/dL HIGH Result Comment: HDL CHOL ATP-III CLASSIFICATION Cardiovascular Risk HDL > or equal to 60 mg/dL LOW HDL < 40 mg/dL HIGH Performed By: #### L IPID, CBC, CMP #### [facility] [address] [place] [address] Serum or plasma total choles terol/high density lipoprotein (HDL) cholesterol mass ratOrdered By: Erin Wood on 07-12-2024 Cholesterol.total/Patience sterol in HDL [Mass ratio] 3.9 {ratio} <5.0 [facility] Comment on above: Result Comment: PERF ORMED BY: [place] [address] PATHOLOGIST SENIOR ENGINEERING TECH ERIN BECK M.D. Performed By: #### L IPID, CBC, CMP #### [facility] [address] Sodium [Moles/volume] in Ser um or PlasmaOrdered By: Erin Wood on 07-12-2024 Sodium [Moles/Vol] 140 mmol/L 136-145 [facility] Comment on above: Performed By: #### L IPID, CBC, CMP #### [facility] [address] Triglyceride [Mass/volume] i n Serum or PlasmaOrdered By: Erin Wood on 07-12-2024 Triglyceride [Mass/Vol] 45 mg/dL 0-149 [facility] Comment on above: TRIG ATP III CLASSIF ICATIONTRIG less than 150 mg/dL NormalTRIG 150-199 mg/dL Borderline highTRIG 200-500 mg/dL High TRIG greater than 500 mg/dL Very highStandard traceable to the Center for Disease Conrtrol and Prevention (CDC) test method. Urea nitrogen [Mass/volume] in Serum or PlasmaOrdered By: Erin Wood on 07-12-2024 Urea nitrogen [Mass/Vol] 9 mg/dL 7-25 [facility] Comment on above: Performed By: #### L IPID, CBC, CMP #### [facility] [address] Urinalysis - DIPSTICKon 11-2 Appearance (U) Clear [employer] Other Bilirubin Ql (U) Negative [employer] Other Color (U) Yellow [employer] Other Glucose Ql (U) Negative [employer] Other Hemoglobin Ql (U) 3+ [employer] Other Ketones Ql (U) Negative [employer] Other Leukocyte esterase Test strip Ql (U) Negative [employer] Other Nitrite Ql (U) Negative [employer] Other pH (U) 5.0 [pH] [employer] Other Protein Ql (U) 1+ [employer] Other Specific gravity (U) [Rel density] 1.020 [facility] Other Urobilinogen (U) [Mass/Vol] 0.2 mg/dL [facility] Other Urinalysis - DIPSTICK [facility] Other ANES POSTPROC EVALon 023 ANES POSTPROC EVAL HNO ID: [id number] Author: Dedra Puente APRN.CRNA Service: Anesthesiology Author Type: Nurse Stepdown Nurse Type: Anesthesia Postprocedure Evaluation Filed: 09/05/2023 2:51 PM Note Text: POST ANESTHESIA EVALUATION NOTE : 1985 Procedure Summary Date: 09/05/23 Room / Location: Ambulatory Surgery Anesthesia Start: 1425 Anesthesia Stop: 1450 Procedures: EGD DIAGNOSTIC COLONOSCOPY DIAGNOSTIC Diagnosis: Loss of weight Marijuana use Nausea and vomiting, unspecified vomiting type Gastroesophageal reflux disease, unspecified whether esophagitis present (Weight loss) (Weight loss) Scheduled Providers: Deborah Coronel MD Responsible Provider: Dedra Puente APRN.CRNA Anesthesia Type: MAC ASA Status: 2 Anesthesia Type: MAC Last Vitals Vitals Value Taken Time BP 115/68 09/05/23 1450 Temp 97.4 09/05/23 1450 Pulse 94 09/05/23 1450 Resp 16 09/05/23 1450 SpO2 98 09/05/23 1450 Post Anesthesia Patient Status Patient Evaluation: PACU. PACU/ICU Patient Condition: stable. Anticipated Disposition: phase 2 then home. Neurological Status: aware and responsive. Pulmonary Status: breathing comfortably on room air Airway Control: returned to baseline unsupported. Cardiovascular Status: stable. Pain Management: clinically adequate - multimodal analgesia pain management approach Postoperative Hydration: acceptable. Intraoperative Events: no significant anesthesia events Post Operative Nausea/Vomiting Status: no significant post operative nausea or vomiting Recommendation: continue current plan of care. Anesthesia Observations No Documentation SIGNATURE: Dedra Puente APRN.DISASSEMBLER PATIENT NAME: Jeffrey Yang DATE: September 05, 2023 TIME: 2:50 PM CSN: [id number] Normal [facility] ANES PRE-OPon 09-05-2023 ANES PRE-OP HNO ID: [id number] Author: Dedra Puente APRN.CRNA Service: Anesthesiology Author Type: Nurse Stepdown Nurse Type: Anesthesia Preprocedure Evaluation Filed: 09/05/2023 2:23 PM Note Text: ANESTHESIOLOGY DAY OF SURGERY NOTE : 1985 Procedure Information Date/Time: 09/05/23 1400 Scheduled providers: Deborah Coronel MD Procedures: EGD DIAGNOSTIC COLONOSCOPY DIAGNOSTIC Location: Ambulatory Surgery Estimated body mass index is 31.09 kg/m? as calculated from the following: Height as of this encounter: 157.5 cm (5' 2 ). Weight as of this encounter: 77.1 kg (170 lb). Most recent hematocrit and potassium results: No results found for this basename: HCT,HEMATOCRIT,K,POTA SSIUM Relevant Problems GI (+) Gastroesophageal reflux disease I - PHYSICAL EVALUATION AIRWAY Patient intubated: No. Tracheostomy tube not present Mallampati: II. TM distance: >3 FB. Neck ROM: full ROM without neurological symptoms. Mouth opening: adequate. Short neck: no. Thick neck: no DENTAL Dental findings: teeth intact. Additional exam findings: no II - ANESTHESIA PLAN ASA Score: 2 Anesthetic Plan: MAC The patient is a current smoker. NPO Status: adequate Beta Karin Monitoring Plan Monitoring plan: standard ASA. Post Procedure Analgesic Plan Postoperative analgesic plan: parenteral or oral opioids and multimodal analgesia. Informed Consent Anesthetic risks, benefits, alternatives, personnel and consent discussed: yes. Patient / Responsible Libertarian agrees to proceed: yes Patient / Surrogate agrees to blood products: blood products not planned Significant changes in the patient condition since the History and Physical, not otherwise documented in primary service progress note: no. Potential Anesthesia issues that may suggest increased risk of complications or contraindication to planned procedure: none. Vitals Value Taken Time BP 122/89 09/05/23 1340 Pulse 68 09/05/23 1340 Resp 18 09/05/23 1340 Temp 36.5 ?C (97.7 ?F) 09/05/23 1340 SpO2 100 % 09/05/23 1340 Outpatient Medications as of 09/05/2023 Medication Sig - pantoprazole DR (PROTONIX) 20 mg tablet Take 20 mg by mouth once daily. No current facility-administered medications on file as of 09/05/2023. I have interviewed and examined the patient. I have reviewed the medical record and/or the pre-anesthesia evaluation, pertinent labs, and test results. This contains updated information obtained within 48 hours of Surgery/Procedure. SIGNATURE: Dedra Puente APRN.CRNA PATIENT NAME: Jeffrey Yang DATE: September 05, 2023 TIME: 2:23 PM CSN: [id number] Normal [facility] Colonoscopyon 09-05-2023 Colonoscopy [facility] Patient Name: Jeffrye Yang Procedure Date: 09/05/2023 2:20 PM Date of : 1985 Admit Type: Outpatient Age: 38 Room: [place] [address] Gender: Female Note Status: Finalized Attending MD: Deborah Coronel MD Procedure: Colonoscopy Indications: Weight loss Providers: Deborah Coronel MD Patient Profile: Refer to note in patient chart for documentation of history and physical. Last Colonoscopy: none. The patient's first colonoscopy is today. Referring Physician: Noemy Hong CNP (Referring MD) Medicines: Monitored Anesthesia Care Complications: No immediate complications. Requesting Provider: Procedure: Pre-Anesthesia Assessment: - Prior to the procedure, a History and Physical was performed, and patient medications and allergies were reviewed. The patient's tolerance of previous anesthesia was also reviewed. The risks and benefits of the procedure and the sedation options and risks were discussed with the patient. All questions were answered, and informed consent was obtained. Prior Anticoagulants: The patient has taken no anticoagulant or antiplatelet agents. ASA Grade Assessment: See anesthesia record. After reviewing the risks and benefits, the patient was deemed in satisfactory condition to undergo the procedure. After I obtained informed consent, the scope was passed under direct vision. Throughout the procedure, the patient's blood pressure, pulse, and oxygen saturations were monitored continuously. The Colonoscope was introduced through the anus and advanced to the cecum, identified by appendiceal orifice and ileocecal valve. I was present and participated during the entire procedure, including non-swan portions, and during the administration and monitoring of Moderate Sedation. The colonoscopy was performed without difficulty. The patient tolerated the procedure well. The quality of the bowel preparation was excellent. The ileocecal valve, appendiceal orifice, and rectum were photographed. Moderate Sedation: MAC anesthesia was administered by the anesthesia team. Findings: The perianal and digital rectal examinations were normal. The colon (entire examined portion) appeared normal. The exam was otherwise normal throughout the examined colon. Impression: - The entire examined colon is normal. - No specimens collected. Recommendation: - Patient has a contact number available for emergencies. The signs and symptoms of potential delayed complications were discussed with the patient. Return to normal activities tomorrow. Written discharge instructions were provided to the patient. - Resume previous diet. - Continue present medications. - Return to referring physician as previously scheduled. - Repeat colonoscopy in 10 years for screening purposes. Procedure Code(s): --- Professional --- 51470, Colonoscopy, flexible; diagnostic, including collection of specimen(s) by brushing or washing, when performed (separate procedure) CPT copyright 2020 [employer]. All rights reserved. The codes documented in this report are preliminary and upon communication electronic technician review may be revised to meet current compliance requirements. Attending Participation: I personally performed the entire procedure. Scope In: 2:35:30 PM Scope Out: 2:43:35 PM MD Deborah Mckeon MD 09/05/2023 2:45:24 PM This report has been signed electronically by Deborah Coronel MD Number of Addenda: 0 Note Initiated On: 09/05/2023 2:20 PM Estimated Blood Loss: Estimated blood loss: none. Normal [facility] EGD Study observation Ricardo solo 09-05-2023 [facility] Patient Name: Jeffrey Yang Procedure Date: 09/05/2023 2:20 PM Date of : 1985 Admit Type: Outpatient Age: 38 Room: [place] [address] Gender: Female Note Status: Finalized Attending MD: Deborah Coronel MD Procedure: Upper GI endoscopy Indications: Weight loss Providers: Deborah Coronel MD Patient Profile: Refer to note in patient chart for documentation of history and physical. Referring Physician: Noemy Hong CNP (Referring MD) Medicines: Monitored Anesthesia Care Complications: No immediate complications. Estimated blood loss: Minimal. Requesting Provider: Procedure: Pre-Anesthesia Assessment: - Prior to the procedure, a History and Physical was performed, and patient medications and allergies were reviewed. The patient's tolerance of previous anesthesia was also reviewed. The risks and benefits of the procedure and the sedation options and risks were discussed with the patient. All questions were answered, and informed consent was obtained. Prior Anticoagulants: The patient has taken no anticoagulant or antiplatelet agents. ASA Grade Assessment: See anesthesia record. After reviewing the risks and benefits, the patient was deemed in satisfactory condition to undergo the procedure. After obtaining informed consent, the endoscope was passed under direct vision. Throughout the procedure, the patient's blood pressure, pulse, and oxygen saturations were monitored continuously. The Colonoscope was introduced through the mouth, and advanced to the second part of duodenum. I was present and participated during the entire procedure, including non-swan portions, and during the administration and monitoring of Moderate Sedation. The upper GI endoscopy was accomplished without difficulty. The patient tolerated the procedure well. Moderate Sedation: MAC anesthesia was administered by the anesthesia team. Findings: The Z-line was regular and was found 39 cm from the incisors. The examined esophagus was normal. The entire examined stomach was normal. The examined duodenum was normal. Impression: - Z-line regular, 39 cm from the incisors. - Normal esophagus. - Normal stomach. - Normal examined duodenum. - No specimens collected. Recommendation: - Patient has a contact number available for emergencies. The signs and symptoms of potential delayed complications were discussed with the patient. Return to normal activities tomorrow. Written discharge instructions were provided to the patient. - Resume previous diet. - Continue present medications. Procedure Code(s): --- Professional --- 40233 CPT copyright 2020 [employer]. All rights reserved. The codes documented in this report are preliminary and upon communication electronic technician review may be revised to meet current compliance requirements. Attending Participation: I was present and participated during the entire procedure from insertion to removal of the endoscope. Scope In: 2:30:34 PM Scope Out: 2:32:54 PM MD Deborah Mckeon MD 09/05/2023 2:34:14 PM This report has been signed electronically by Deborah Coronel MD Number of Addenda: 0 Note Initiated On: 09/05/2023 2:20 PM Estimated Blood Loss: Estimated blood loss: none. PROVATION [facility] Radiology Study observation (narrative) [facility] Flexible sigmoidoscopy study on 09-05-2023 [facility] Patient Name: Jeffrey Yang Procedure Date: 09/05/2023 2:20 PM Date of : 1985 Admit Type: Outpatient Age: 38 Room: [place] [address] Gender: Female Note Status: Finalized Attending MD: Deborah Coronel MD Procedure: Colonoscopy Indications: Weight loss Providers: Deborah Coronel MD Patient Profile: Refer to note in patient chart for documentation of history and physical. Last Colonoscopy: none. The patient's first colonoscopy is today. Referring Physician: Noemy Hong CNP (Referring MD) Medicines: Monitored Anesthesia Care Complications: No immediate complications. Requesting Provider: Procedure: Pre-Anesthesia Assessment: - Prior to the procedure, a History and Physical was performed, and patient medications and allergies were reviewed. The patient's tolerance of previous anesthesia was also reviewed. The risks and benefits of the procedure and the sedation options and risks were discussed with the patient. All questions were answered, and informed consent was obtained. Prior Anticoagulants: The patient has taken no anticoagulant or antiplatelet agents. ASA Grade Assessment: See anesthesia record. After reviewing the risks and benefits, the patient was deemed in satisfactory condition to undergo the procedure. After I obtained informed consent, the scope was passed under direct vision. Throughout the procedure, the patient's blood pressure, pulse, and oxygen saturations were monitored continuously. The Colonoscope was introduced through the anus and advanced to the cecum, identified by appendiceal orifice and ileocecal valve. I was present and participated during the entire procedure, including non-swan portions, and during the administration and monitoring of Moderate Sedation. The colonoscopy was performed without difficulty. The patient tolerated the procedure well. The quality of the bowel preparation was excellent. The ileocecal valve, appendiceal orifice, and rectum were photographed. Moderate Sedation: MAC anesthesia was administered by the anesthesia team. Findings: The perianal and digital rectal examinations were normal. The colon (entire examined portion) appeared normal. The exam was otherwise normal throughout the examined colon. Impression: - The entire examined colon is normal. - No specimens collected. Recommendation: - Patient has a contact number available for emergencies. The signs and symptoms of potential delayed complications were discussed with the patient. Return to normal activities tomorrow. Written discharge instructions were provided to the patient. - Resume previous diet. - Continue present medications. - Return to referring physician as previously scheduled. - Repeat colonoscopy in 10 years for screening purposes. Procedure Code(s): --- Professional --- 46646, Colonoscopy, flexible; diagnostic, including collection of specimen(s) by brushing or washing, when performed (separate procedure) CPT copyright 2020 [employer]. All rights reserved. The codes documented in this report are preliminary and upon communication electronic technician review may be revised to meet current compliance requirements. Attending Participation: I personally performed the entire procedure. Scope In: 2:35:30 PM Scope Out: 2:43:35 PM MD Deborah Mckeon MD 09/05/2023 2:45:24 PM This report has been signed electronically by Deborah Coronel MD Number of Addenda: 0 Note Initiated On: 09/05/2023 2:20 PM Estimated Blood Loss: Estimated blood loss: none. PROVATION [facility] Radiology Study observation (narrative) [facility] 023 Upper GI endoscopy [facility] Gastrointestinal Endoscopy Patient Name: Jeffrey Yang Procedure Date: 09/05/2023 2:20 PM Date of : 1985 Admit Type: Outpatient Age: 38 Room: [place] [address] Gender: Female Note Status: Finalized Attending MD: Deborah Coronel MD Procedure: Upper GI endoscopy Indications: Weight loss Providers: Deborah Coronel MD Patient Profile: Refer to note in patient chart for documentation of history and physical. Referring Physician: Noemy Hong CNP (Referring MD) Medicines: Monitored Anesthesia Care Complications: No immediate complications. Estimated blood loss: Minimal. Requesting Provider: Procedure: Pre-Anesthesia Assessment: - Prior to the procedure, a History and Physical was performed, and patient medications and allergies were reviewed. The patient's tolerance of previous anesthesia was also reviewed. The risks and benefits of the procedure and the sedation options and risks were discussed with the patient. All questions were answered, and informed consent was obtained. Prior Anticoagulants: The patient has taken no anticoagulant or antiplatelet agents. ASA Grade Assessment: See anesthesia record. After reviewing the risks and benefits, the patient was deemed in satisfactory condition to undergo the procedure. After obtaining informed consent, the endoscope was passed under direct vision. Throughout the procedure, the patient's blood pressure, pulse, and oxygen saturations were monitored continuously. The Colonoscope was introduced through the mouth, and advanced to the second part of duodenum. I was present and participated during the entire procedure, including non-swan portions, and during the administration and monitoring of Moderate Sedation. The upper GI endoscopy was accomplished without difficulty. The patient tolerated the procedure well. Moderate Sedation: MAC anesthesia was administered by the anesthesia team. Findings: The Z-line was regular and was found 39 cm from the incisors. The examined esophagus was normal. The entire examined stomach was normal. The examined duodenum was normal. Impression: - Z-line regular, 39 cm from the incisors. - Normal esophagus. - Normal stomach. - Normal examined duodenum. - No specimens collected. Recommendation: - Patient has a contact number available for emergencies. The signs and symptoms of potential delayed complications were discussed with the patient. Return to normal activities tomorrow. Written discharge instructions were provided to the patient. - Resume previous diet. - Continue present medications. Procedure Code(s): --- Professional --- 53154 CPT copyright 2020 [employer]. All rights reserved. The codes documented in this report are preliminary and upon communication electronic technician review may be revised to meet current compliance requirements. Attending Participation: I was present and participated during the entire procedure from insertion to removal of the endoscope. Scope In: 2:30:34 PM Scope Out: 2:32:54 PM MD Deborah Mckeon MD 09/05/2023 2:34:14 PM This report has been signed electronically by Deborah Coronel MD Number of Addenda: 0 Note Initiated On: 09/05/2023 2:20 PM Estimated Blood Loss: Estimated blood loss: none. Normal [facility] HISTORY PHYSICALon HISTORY PHYSICAL HNO ID: [id number] Author: Noemy Hong APRN.EMPLOYEE HEALTH NURSE Service: ? Author Type: Nurse Practitioner Type: HANDP Filed: 08/10/2023 3:05 PM Note Text: DISTANCE HEALTH VISIT This Team Access Model visit is a virtual encounter. It required patient-provider interaction for the medical decision making as documented below. REASON FOR VISIT: GERD HPI: Jeffrey Yang is a 38 year old female who presents for GERD, nausea/vomiting and unintentional weight loss. She endorses a 42 pound weight loss since October. She states that she was unable to keep any food or fluids down for approximately 3 weeks or so. She endorses chronic issues with acid reflux and heartburn. She was initially on omeprazole 40 mg daily and then switched to pantoprazole 40 mg daily. She states that her nausea and vomiting significantly improved after discontinuing the use of edibles. She does still occasionally experience morning nausea with intermittent vomiting. She averages 1-2 bowel movements daily. Patient denies dysphagia, early satiety, abdominal pain, changes in appetite, change in bowel habits, melena, hematochezia or hematemesis. No prior history of colonoscopy. History of colon cancer in her maternal uncle. She denies regular NSAID use. She smokes cigars occasionally. She endorses social alcohol intake and regular marijuana use. Past Clinical Work-Up: ALLERGIES Not on File PAST MEDICAL HISTORY Diagnosis Date Headache 03/04/2020 No past surgical history on file. No family history on file. Current Outpatient Medications Medication Sig pantoprazole DR (PROTONIX) 20 mg tablet Take 20 mg by mouth once daily. No current facility-administered medications for this visit. I have confirmed and edited, if necessary, the PFSH obtained by others. REVIEW OF SYSTEMS: GENERAL: No malaise or fevers, +unintentional weight loss RESPIRATORY: Negative for cough, hemoptysis, wheezing, dyspnea or shortness of breath CARDIOVASCULAR: Negative for chest pain, leg swelling, or palpitations GI: See HPI PHYSICAL EXAM: General - Normal, healthy, cooperative, in no acute distress Able to interact verbally by video conference Psych - ORIENTATION: normal to time place, person and situation Mood/Affect: AFFECT AND MOOD: Normal Head/Neuro - Normal size and shape Facial appearance normal Pulmonary - respiratory effort normal Cardiovascular - patient describes extremities normal, warm, no cyanosis,no clubbing, and no edema Abdominal - Not performed Skin - abnormal lesions not visualized Motor - patient seen sitting with Normal appearing strength and coordination ASSESSMENT/PLAN: Ms. Yang is a 38 year old female with a history of GERD presents for GERD, nausea/vomiting and unintentional weight loss. She endorses a 42 pound weight loss since October. She states that she was unable to keep any food or fluids down for approximately 3 weeks or so and avoided eating. She endorses chronic issues with acid reflux and heartburn. She is currenty on pantoprazole 40 mg daily. She states that her nausea and vomiting significantly improved after discontinuing the use of edibles. I recommend an EGD and colonoscopy given her significant unintentional weight loss. I discussed her symptoms are likely related to cannabinoid hyperemesis syndrome and suggest avoiding marijuana. Procedure/risks were discussed with the patient in great detail including the risk of sedation and bleeding. Patient is agreeable with proceeding and instructed to call with any questions or concerns. 1. Loss of weight - ICD9: 783.21, ICD10: R63.4 (primary diagnosis) - EGD DIAGNOSTIC - COLONOSCOPY DIAGNOSTIC 2. Marijuana use - ICD9: 305.20, ICD10: F12.90 - EGD DIAGNOSTIC 3. Nausea and vomiting, unspecified vomiting type - ICD9: 787.01, ICD10: R11.2 - EGD DIAGNOSTIC 4. Gastroesophageal reflux disease, unspecified whether esophagitis present - ICD9: 530.81, ICD10: K21.9 - Discussed lifestyle modifications including limiting caffeine, no meals three hours before sleep, and head of bed elevation - EGD DIAGNOSTIC I spent more than 30 minutes [id number] with the patient and over half the time was devoted to counseling and/or coordination of care. This note was dictated using [employer] speech recognition software and may contain some errors that were a result of the program not accurately transcribing what was dictated. I have communicated my name and active licensure. The patient's identity and physical location were verified at the time of this visit. Either the patient or their legal wine sales representative has been informed of the risks and benefits of -- and alternatives to -- treatment through a remote evaluation and consents to proceed with the evaluation remotely. Noemy Hong APRN.EMPLOYEE HEALTH NURSE Normal [facility] Alanine aminotransferase [En zymatic activity/volume] in Serum or PlasmaOrdered By: Erin Wood on 02-16-2023 ALT [Catalytic activity/Vol] 22 U/L 7-52 [facility] Albumin [Mass/volume] in Ser um or Plasma by Bromocresol green (BCG) dye binding methoOrdered By: Erin Wood on 02-16-2023 Albumin BCG dye [Mass/Vol] 4.6 g/dL 3.5-5.7 [facility] Alkaline phosphatase [Enzyma tic activity/volume] in Serum or PlasmaOrdered By: Erin Wood on 02-16-2023 ALP [Catalytic activity/Vol] 69 U/L 34-104 [facility] Aspartate aminotransferase [ Enzymatic activity/volume] in Serum or PlasmaOrdered By: Erin Wood on 02-16-2023 AST [Catalytic activity/Vol] 17 U/L 13-39 [facility] Basophils Auto (Bld) [#/Vol] Ordered By: Erin Wood on 02-16-2023 Basophils (Bld) [#/Vol] 0.1 10*3/uL 0.0-0.2 [facility] Basophils/100 WBC Auto (Bld) Ordered By: Erin Wood on 02-16-2023 Basophils/100 WBC (Bld) 0.9 % . [facility] Bilirubin.total [Mass/volume ] in Serum or PlasmaOrdered By: Erin Wood on 02-16-2023 Bilirubin [Mass/Vol] 2.6 mg/dL 0.3-1.0 [facility] Comment on above: Samples from patient s who have taken Naproxen have shown spurious elevation in Total Bilirubin levels. A metabolite of Naproxen, O-desmethylnaproxen, has been shown to interfere with the Randa method for measuring Total Bilirubin. Calcium [Mass/volume] in Ser um or PlasmaOrdered By: Erin Wood on 02-16-2023 Calcium [Mass/Vol] 9.0 mg/dL 8.6-10.3 [facility] Carbon dioxide, total [Moles /volume] in Serum or PlasmaOrdered By: Erin Wood on 02-16-2023 CO2 [Moles/Vol] 25.0 mmol/L 21.0-31.0 [facility] Chloride [Moles/volume] in S ander or PlasmaOrdered By: Erin Wood on 02-16-2023 Chloride [Moles/Vol] 105 mmol/L 98-107 [facility] Cholesterol [Mass/volume] in Serum or PlasmaOrdered By: Erin Wood on 02-16-2023 Cholesterol [Mass/Vol] 159 mg/dL 140-200 [facility] Comment on above: Chol less than 200 m g/dl low riskChol 201-239 mg/dl borderline riskChol 240 mg/dl and greater high risk Cholesterol in LDL Calc [Mas s/Vol]Ordered By: Erin Wood on 02-16-2023 Cholesterol in LDL [Mass/Vol] 113 mg/dL 0-100 [facility] Comment on above: LDL ATP III CLASSIFI CATIONLDL less than 100 mg/dL OptimalLDL 100-129 mg/dL Near or above optimalLDL 130-159 mg/dL Borderline highLDL 160-189 mg/dL HighLDL greater than 189 mg/dL Very high Cholesterol in VLDL Calc [Ma ss/Vol]Ordered By: Erin Wood on 02-16-2023 Cholesterol in VLDL [Mass/Vol] 9 mg/dL [facility] Creatinine [Mass/volume] in Serum or PlasmaOrdered By: Erin Wood on 02-16-2023 Creatinine [Mass/Vol] 0.58 mg/dL 0.60-1.20 [facility] Eosinophils Auto (Bld) [#/Vo l]Ordered By: Erin Wood on 02-16-2023 Eosinophils (Bld) [#/Vol] 0.1 10*3/uL 0.0-0.45 [facility] Eosinophils/100 WBC Auto (Bl d)Ordered By: Erin Wood on 02-16-2023 Eosinophils/100 WBC (Bld) 0.8 % . [facility] Erythrocyte distribution wid th Auto (RBC) [Ratio]Ordered By: Erin Wood on 02-16-2023 Erythrocyte distribution width (RBC) [Ratio] 12.9 % 11.9-15.3 [facility] Globulin Calc (S) [Mass/Vol] Ordered By: Erin Wood on 02-16-2023 Globulin (S) [Mass/Vol] 2.4 g/dL [facility] Glucose [Mass/volume] in Ser um or PlasmaOrdered By: Erin Wood on 02-16-2023 Glucose [Mass/Vol] 71 mg/dL 70-100 [facility] Comment on above: ADA recommended refe rence rangeRandom Glucose Reference Range is dependent on time and content of last meal. Glucose of more than 200 mg/dL in a nonstressed, ambulatory subject supports the diagnosis of Diabetes Mellitus. Hematocrit Auto (Bld) [Volum e fraction]Ordered By: Erin Wood on 02-16-2023 Hematocrit (Bld) [Volume fraction] 43.7 % 34.0-46.4 [facility] Hemoglobin [Mass/volume] in BloodOrdered By: Erin Wood on 02-16-2023 Hemoglobin (Bld) [Mass/Vol] 14.8 g/dL 11.8-15.4 [facility] Iron [Mass/volume] in Serum or PlasmaOrdered By: Erin Wood on 02-16-2023 Iron [Mass/Vol] 151 ug/dL 50-212 [facility] Iron binding capacity [Mass/ volume] in Serum or PlasmaOrdered By: Erin Wood on 02-16-2023 Iron binding capacity [Mass/Vol] 305 ug/dL 255-450 [facility] Iron saturation [Mass Fracti on] in Serum or PlasmaOrdered By: Erin Wood on 02-16-2023 Iron saturation [Mass fraction] 49.5 % 20-50 [facility] Leukocytes [#/volume] correc douglas for nucleated erythrocytes in Blood by Automated counOrdered By: Erin Wood on 02-16-2023 WBC corrected for nucl RBC Auto (Bld) [#/Vol] 9.6 10*3/uL 3.8-11.6 [facility] Lymphocytes Auto (Bld) [#/Vo l]Ordered By: Erin Wood on 02-16-2023 Lymphocytes (Bld) [#/Vol] 2.8 10*3/uL 1.00-4.8 [facility] Lymphocytes/100 WBC Auto (Bl d)Ordered By: Erin Wood on 02-16-2023 Lymphocytes/100 WBC (Bld) 28.8 % . [facility] MCH Auto (RBC) [Entitic mass ]Ordered By: Erin Wood on 02-16-2023 MCH (RBC) [Entitic mass] 31.8 pg 24.7-34.3 [facility] MCHC Auto (RBC) [Mass/Vol]Or dered By: Erin Wood on 02-16-2023 MCHC (RBC) [Mass/Vol] 33.8 g/dL 32.0-35.0 [facility] MCV Auto (RBC) [Entitic vol] Ordered By: Erin Wood on 02-16-2023 MCV (RBC) [Entitic vol] 94.0 fL 80-100 [facility] Monocytes Auto (Bld) [#/Vol] Ordered By: rEin Wood on 02-16-2023 Monocytes (Bld) [#/Vol] 0.6 10*3/uL 0.0-0.8 [facility] Monocytes/100 WBC Auto (Bld) Ordered By: Erin Wood on 02-16-2023 Monocytes/100 WBC (Bld) 6.1 % . [facility] Neutrophils Auto (Bld) [#/Vo l]Ordered By: Erin Wood on 02-16-2023 Neutrophils (Bld) [#/Vol] 6.1 10*3/uL 1.8-7.7 [facility] Neutrophils/100 WBC Auto (Bl d)Ordered By: Erin Wood on 02-16-2023 Neutrophils/100 WBC (Bld) 63.4 % . [facility] No Panel InformationOrdered By: Erin Wood on 02-16-2023 Estimated GFR (CKD-EPI) > 60.0 mL/Min [facility] Creatinine Clearance (Chem N/A [facility] Nucleated erythrocytes [Pres ence] in Blood by Automated countOrdered By: Erin Wood on 02-16-2023 Nucleated RBC Auto Ql (Bld) 0.3 /100{WBC} 0-0.5 [facility] Platelet mean volume Auto (B ld) [Entitic vol]Ordered By: Erin Wood on 02-16-2023 Platelet mean volume (Bld) [Entitic vol] 8.2 fL 6.3-10.7 [facility] Platelets Auto (Bld) [#/Vol] Ordered By: Erin Wood on 02-16-2023 Platelets (Bld) [#/Vol] 340 10*3/uL 150-450 [facility] Potassium [Moles/volume] in Serum or PlasmaOrdered By: Erin Wood on 02-16-2023 Potassium [Moles/Vol] 3.5 mmol/L 3.5-5.1 [facility] Protein [Mass/volume] in Ser um or PlasmaOrdered By: Erin Wood on 02-16-2023 Protein [Mass/Vol] 7.0 g/dL 6.4-8.9 [facility] RBC Auto (Bld) [#/Vol]Ordere d By: Erin Wood on 02-16-2023 RBC (Bld) [#/Vol] 4.65 10*6/uL 3.60-5.00 [facility] Serum or plasma albumin/glob ulin mass ratioOrdered By: Erin Wood on 02-16-2023 Albumin/Globulin [Mass ratio] 1.9 {ratio} [facility] Serum or plasma anion gap de terminationOrdered By: Erin Wood on 02-16-2023 Anion gap [Moles/Vol] 12.5 mmol/L 6.0-15.0 [facility] Serum or plasma high density lipoprotein (HDL) cholesterol measurementOrdered By: Erin Wood on 02-16-2023 Cholesterol in HDL [Mass/Vol] 37 mg/dL 35-85 [facility] Comment on above: HDL CHOL ATP-III CLA SSIFICATION Cardiovascular RiskHDL > or equal to 60 mg/dL LOWHDL < 40 mg/dL HIGH Serum or plasma total choles terol/high density lipoprotein (HDL) cholesterol mass ratOrdered By: Erin Wood on 02-16-2023 Cholesterol.total/Patience sterol in HDL [Mass ratio] 4.3 {ratio} <5.0 [facility] Sodium [Moles/volume] in Ser um or PlasmaOrdered By: Erin Wood on 02-16-2023 Sodium [Moles/Vol] 139 mmol/L 136-145 [facility] Thyrotropin [Units/volume] i n Serum or PlasmaOrdered By: Erin Wood on 02-16-2023 TSH Qn 1.01 m[IU]/L 0.45-5.33 [facility] Transferrin [Mass/volume] in Serum or PlasmaOrdered By: Erin Wood on 02-16-2023 Transferrin [Mass/Vol] 218 mg/dL 203-362 [facility] Triglyceride [Mass/volume] i n Serum or PlasmaOrdered By: Erin Wood on 02-16-2023 Triglyceride [Mass/Vol] 45 mg/dL 0-149 [facility] Comment on above: TRIG ATP III CLASSIF ICATIONTRIG less than 150 mg/dL NormalTRIG 150-199 mg/dL Borderline highTRIG 200-500 mg/dL High TRIG greater than 500 mg/dL Very highStandard traceable to the Center for Disease Conrtrol and Prevention (CDC) test method. Urea nitrogen [Mass/volume] in Serum or PlasmaOrdered By: Erin Wood on 02-16-2023 Urea nitrogen [Mass/Vol] 9 mg/dL 7-25 [facility] Vitamin D+Metabolites [Mass/ volume] in Serum or PlasmaOrdered By: Erin Wood on 02-16-2023 Vitamin D+Metabolites [Mass/Vol] 28.4 ng/mL 30-100 [facility] Comment on above: VITAMIN D STATUS 25( [place])VITAMIN D RANGE (ng/mL) Deficient <20 Insufficient 20 to <30Sufficient 30 to 100Reference: Alicia MF,Jamison MACIAS, Ken CLAIRE, et al. Evaluation,treatment, and prevention of vitamin D deficiency; an Endocrine Society clinical practice guideline. JCEM. 2010; 96(7):1911-30. WBC Auto (Bld) [#/Vol]Ordere d By: Erin Wood on 02-16-2023 WBC (Bld) [#/Vol] 9.6 10*3/uL 3.8-11.6 [facility] COVID + FLU Quick Testingon 01-27-2023 SARS-CoV-2 (COVID-19) RNA AUORRA+probe Ql (Unsp spec) Negative [employer] Other COVID + FLU Quick Testing Negative [employer] Other XR Ankle Complete Righton XR Ankle Complete Right HISTORY: Fall, p ain COMPARISON: TECHNIQUE: AP, lateral, and oblique views of the ankle. FINDINGS: There is a lucency of the articular surface of the talus which may represent a transchondral fracture versus AVN. Ankle mortise is preserved. Talar dome is intact. Soft tissues are within normal limits. IMPRESSION: There is a lucency of the articular surface of the talus which may represent a transchondral fracture versus AVN. Report reported and signed by LEAH TORRES on 07/10/2022 1016 Normal [facility] [employer] Quick Strepon 01-15-2022 S. pyogenes Org specific cx Ql (Throat) Negative [facility] [employer] Other Quick Strep [facility] [employer] Other Coding Summaryon 07-08-2021 Coding Summary [employer] 64 ZfyouiaySTv6dEw+PGhlY WQ+FU7YCSXaK07mpHZlqR 0GJ4hDVY7VHTTKBXRAXT5 BRK0nbGB5JFujH6BhzgZi QcsogAUfQV43JXn1BYY1y CaiSEuqcU8ghHGaL0a8Gh JjEM35lB00LTlfESDkZgC 3LjZpbjsgbWFy A2haItMwtNFsEfa+PHRhY mxlIHdpZHRoPScxMDAlJy NioXqkYP5rCy4eFRVjHGY vbGxhcHNlOiBj q8yoKOFgRHnsTS3uuOotG 3DowCH9NHEge0k4Ay50eK I+XBGqAJS6zWkeSKahe55 5XcVph4vdPSH7 hSNaKXwjJNM1Z35et9A1M DZvUKGpKAN1gEB5bN8enQ bitwimA7EnpQZoXhB4AXB 6aZBupZ1rzVkb wnzboV9tWuo+S40ECI7SC ZBQHO6ZGel2V0SpAtdtyT I+LJ22IRZtKS05zLFysUT pm9hxbVi6PuLy CPUqPQM3bBdgTYhlh4NcQ RVjH43koZGkw4D4VLCttS ztxMBtNnHjlHM6iQ9eBFq unxfeo1dsvrsv Lmeeb5brzt34hL16R67hQ DxkANCfCWG9AMBaWMYcdX ylyn2jwK4eNn4+HZhwr3a eq7bpzTq8ObEh HOEaaiNdgQldPVQ0m5PlY k70R4EotGaye7ZsOrg2wa 23nKPrm3D2mWF5WRppGSL diO5lPJisSbD9 IQTgFrNjhE17kQThLDnoC k3cqVxppWfrIR5yMJOwfl zbDIUkvG8tKXVaiVJonYy fJX9kXEZlmyug h674MeLjCUA5GQKobVYxI 8BguW1zPbYbFRTaAUOqU6 DjbMDnFUlnJ389YApyPvR 2ECVoyjTjZ1Ru QIZisKeuJmK3s7G4Ku2On 3JantyaQMW1LCmjKZK4Ll W9RaPnCqV4W1NaCxi5IYI vnLgxGA8nW9Fw NJDenydedetubSB8LNUjR OYyzW26gXZaLRcbRa5jr4 D1w603HDWgMQCevL95Te9 udDogMTBwdCBU oG6gmaqgd3uscrnzCqRgE XBgITu8PCz3AJUycAgsVk RpFQH1YlY2LLH3tRQgiV9 hiPrbziffyB6r Oyc+M34zmK5vNLC1ZHT3i glcVRJpbaIdDP72SX50G5 RyPjwvdGFibGU+PGRpdiB nbCiuTM5jHvAh d9ccx9KoYVueA9FhAVNiW NhdVct8EDVyWWK4hIP8eG 0mHQDzHIzkb7A2nMC8T8N tuuNela0ic8wg GXSmMDwcI49pvPNpw7T0Z PVdhBD5HVQbhXyqReXpzI 93Oyc+MATmrMize4TwSri mz8qmj3qyoLh9 NjFaGAEsltCfpUjjQGB6d 4VjFe51X19wZGdeQGIhPL PkEDNyKJZcbTekzt0wvF0 wIi8+PGNvbCB3 fYX9dD5xZIWiYrC8SWrmR 687UcGqzDQbCbhni7hyj2 ljqCk2TiZjYIRazkPqlVu oANY9m2PaBe12 S38kSQrqVTLrJQHfTNRpF ASrmNuqqf1ynT9mBg6+PC 1lf0wfyv81qI60xCR+PHR lWQX3bLbzHFsd UWZiwY6aXDhhWjV9WAIfZ yQteK54lUHxZMgxWg1jvK sexMvyOK6zVPTscstxz94 9VgLld8oiPIOp lRWpOWprHNI7B70nq4I4M BBuMLLuPUU1rZS9zF1riK lnbjogbGVmdDsgdmVydGl iBNysHJatI399 IHRvcDsnPlBhdGllbnQgT vLcNMp1T7BjUjf4RFYwsO skZA6brTCkEXecAg2ssPa xiQziNQ3eCHGs meyty402YbUaa7tcQZEgj DTzLCwyWHR4E06dy0U4YN ItGIUeCIU4iGN2mK3qyWc nbjogbGVmdDsg fhBjxPkcDHsqRVfpR539R HRvcDsnPkJpcnRoIERhdG Z9KY00YG22dEIpn4U4iPX 9J8MuNTIigbgp eaioxSF5TMMtOXFsaL07J u5frGlwIx8lGRIuDAP5RI HclWXhO8RhoO1hHoUlQIE uGVKvS7KadCJi XMpiJ946ZZihHiX5MYSyr lFrO5PhIRWpxTqvVwO2f4 K5Lc9WY6N6UO49VD41tWR gv0G0aAW3R5By FKHdfkrgommagXO9WMFuR VUvrF50Ib0kjBikOb9bMR BnRLB2XSHnuDJrW5PtsX3 yOiAjMDAwMDAw K1WsnUTsPMurA442GVnwV fE4WJEoahEfZ1OyLWBklR zjXmA2b8Q5Vb9PSFb2NL0 4CO15kYNra9Z6 cHG9C8BaKECbffftihkgx GO0NEAoJJPipF42Va8ouS bzAr5eJBMeZDL5XHXudFK uN3VgoN9mDrXn QQUyUKDaG9KveDLpBGkhE 505AYcbTzN0NVBgmeIhQ1 VgVVHmwYojYcB8e8I2Vj5 PYRFgRD18KWM1 nTE8PC37RJ29I2EgWsvkq GFibGU+PHRhYmxlIHdpZH RoPScxMDAlJyBzdHlsZT0 pJw9cAOWvSPYp jQjsvRGwCwKke3rvMTRzY XbmET3eoAnbQ3NscAD3MJ Qyj5u0Ox58P84qV5AwwCX +SONhrDL0qJI9 hS1pWzDbWyG7SZnrU440E yWuuINhKpefa5srg9semE t0ZuK9OIHkmsWvnWnlELP 6f1XtEf09L02d IHdpZHRoPSIxNSUiIHZhb Bpxnr8vrJ0oHj9+PGNvbC Q9bJZ7lY6tPmIoLsC9UFl oM830CeCwaAPd Ujkzo2bwm1zwpYf0CjOoG UOrxjPyrKkeVIX7x7XjWu 68G8WieBkcs3WjNqn4go2 7gXCqh4F7bUQ7 H2MpHHYdtujtxVJvdPpbN Q9lJYJxjlraXVMgcX7yTD TuW9f5BsLiWjU0IIhfH5A rlfL4TLCrtODg XGmqDNK6S16sx7U5LJQrW BCzLEU5gRS3xM1piAaxiz ogbGVmdDsgdmVydGljYWw mLAmhF099HDFv qClqWMZriJ8qCBZtdBNfc WpmRD0hRZYevwfkKf8YCn NVCompP6HSD2XSPJXZAIm DBOE2X9NkPkv3 QWWyrFluRE2pfECnLHgkT l5riCbdgYcxWQ3pMNLxia abDLRxiK4cDVYggTXrhKc qZY2pDYVrhyfh m351SdFmBYD2PFThpBYtA 1UtbD2gVlWjZSPmPFJgX7 RpcLFqSPvoM536QEnbOaB 1EBDzsdBiI5Fz AJKnhLziKtD8e1T9Qf6iX M0gSU6oGVx2MM64XG73vI Pol6C8iLH7Z1IhASDhcvl rucssbBE0HPIc KKVgeB30eXYzXRhkZq7de 0D2n900IIDwEVKhkH26Li 0tbWvmJVVfcHQNrT6ufph dg7zhucpoVhDv ODGuODu0RPd6VCNmcSfjQ gYlYLD7YuF6NMZ0wHEnrR 9jyHthcvvlkM8kBlg+MzU qJQCtykJ4O6Uz Jog3DGVgqYprNF6hoTOuF DvmHf9wkWgfeCarBR8xLC YkramdHDIdzV9oBLPgjDR ieAijKX7mPQXv cnzay579XjCxVNO4IDXhe TXtS7JopL4kFnZiYIVpEU BqK8LvcHEgHKkkV871TYg eLkX4DTDudxKh T8UkVDPwyOmvAdG0s7V6I t4PRC7XCWK0Q9EvJgr2FR GeoPxjWD4ikUIdAHcgJs6 ctJnfvGbvYO7e QMEyxtwvZQMskD3iDIOei PJuqFufFY8wDCFzxznei2 34CsTbEPL4GFVbrEOlS2M dbY4bOwPbKAQs NCWuP3UgzHHoCCuiE539A NovWcL4IFGeiyMzL7CvSI ZbbTpbLfP4a1X7Qm6LBGa vdGQ+RM18dd41 X9PtWzbcHob4LYGmMAT4y CC5vV7zGCLqBGppq2E7eS R9L0EnbbSfio4ze4puYVT fBGkiS74pvUAr t2Q4QDKocSP0UWJbqVgmT aVrkH38Udl+PGNvbGdyb3 VwJkbaa2qhm9giwOq0LrS wJSIgdmFsaWdu JNP4f4VyYa41Z71bGHumP HRoPSIzMCUiIHZhbGlnbj 1dmJ5xVt8+ZGYluAX0vLA 1gY6sSlKwVlF2 LKujS409CdNxiGFyGkglk 4elm6rtnCx0YrRdJGVmtn ErnOhnYNM0o3JjZj59M3B haQatm5ShXjf0 ci51cLBrx0A3cMS0L4XqA PEhtvrmuCRftBzoAA2mZK TtawluYGWpgL5bWQMeG3y 4ScZtFqI2SGet J0NdcxM0JSZtuUWrOMCkq WEFtW8xmzjxm8medohrLz SeIBToRYi7UKd3ZGMcjGk rOlOeXKL3YmT6 MOI4xCCkuV1ogDgpejbzo G9wOyc+TNe8h4enrHIuTK 0adQW6CV72WZ86bXCrr9U 6dVU0S4ZgGUXi afmfzgzxgEV0BVDzVSNbs P31Qz4ioUyhCh6bLFIiDD X0EQJdcCZpN1NktH8gMiF hJRSxIXRdC3Kq wJUfXTydZ125NMjyMoT8M FPgvlZhN8YbLJLfsPuoTt W7u6O6Dp4ZPX13RV90ZA7 4mYSrd4E9rCZ6 A8XdYAZvbmnmydytxOL5P OBnUZTmjD95Ix2fhQftKk 0gHBXjOOG0XONohMToT2D chB0mUqMmEOEc GPMqI8OjmOYlGZufT321R CwvSoS5OHFopgYvD5StNV UyeYnhOqM5w0M3Km7SQo5 5YE87YQ32sXUi u6O0gXM8Z9KqBUVhutqds zmwxZV6SLFyUBNzfI21Hu 3efPgpOx6eTWZvQWR5CMD xnIYiB5DhtD8l QfEwOOJzZRJeR2TpkJWrR LgnK491PUmvIdF2MVDoab SxU8KdSIGesAjhDbD9n1X 8Qs8RYKowpsg2 B0QuDvmitPH+VV00DLOnI L63uZAyvCStz7mszTw0Gi AzZPHoGBP7iRelFRffe8T tNDUuC54beUQm c2U (more content not included)... [facility] Release of Informationon Release of Information [id number] .00OTGTIFF [facility] Urgent Care Note- Provideron 06-30-2021 Urgent Care Note- Provider Patient: JEFFREY YANG Age: 36 years Sex: FEMALE : 1985 Associated Diagnoses: Left knee pain Author: Anuel Cook Basic Information Time seen: Date & time 06/26/2021 16:04:00. History source: Patient. History limitation: None. History of Present Illness Patient is a 36-year-old female complaint of left knee pain. Patient states injured her knee jumping a fence at a concert on Tuesday. Patient did not strike her head or injure her neck. Patient has no other complaints or concerns. Review of Systems Constitutional symptoms: Negative except as documented in HPI. Musculoskeletal symptoms: Negative except as documented in HPI. Additional review of systems information: All other systems reviewed and otherwise negative. Health Status Allergies: Allergic Reactions (Selected) No known allergies. Medications: (Selected) Documented Medications Documented pantoprazole: 40 mg, PO, Daily, 0 Refill(s). Past Medical/ Family/ Social History Medical history: Resolved History of cholecystectomy ([id number]): Resolved.. Surgical history: Esophagogastroduodeno scopy ([id number]) on 07/30/2019 at 34 Years. Cholecystectomy ([id number]).. Family history: Renal calculi Mother Brother . Social history: Social & Psychosocial Habits Alcohol 12/25/2019 Alcohol Use: Never Substance Abuse 03/02/2019 Substance use: Never Tobacco 03/12/2017 Risk Assessment: High Risk 03/12/2017 Smoking tobacco use: Current Every Day Smoker Type: Cigarettes Number used per day: 10 Electronic Cigarette/Vaping 07/30/2019 Electronic Cigarette Use: Never . Problem list: Active Problems (4) Hiatal hernia Hx of gastroesophageal reflux (GERD) None Smoker . Physical Examination Vital Signs Vital Signs 06/26/2021 16:10 EDT Temperature Oral 37.2 DegC Temperature Oral 37.2 DegC Peripheral Pulse Rate 84 bpm Peripheral Pulse Rate 84 bpm Respiratory Rate 18 br/min Respiratory Rate 18 br/min Systolic Blood Pressure 126 mmHg Systolic Blood Pressure 126 mmHg Diastolic Blood Pressure 90 mmHg Diastolic Blood Pressure 90 mmHg SpO2 98 % SpO2 98 % Oxygen Therapy Room air Oxygen Therapy Room air . General: Alert, no acute distress. Skin: Warm, dry. Head: Normocephalic, atraumatic. Eye: Normal conjunctiva. Cardiovascular: Regular rate and rhythm. Respiratory: Lungs are clear to auscultation, respirations are non-labored, breath sounds are equal, Symmetrical chest wall expansion. Back: Normal range of motion. Musculoskeletal: Normal ROM, normal strength, Subtle edema present just superior to the knee, Mild generalized tenderness to the knee. Psychiatric: Cooperative, appropriate mood & affect. Medical Decision Making Differential Diagnosis: Sprain, strain, internal knee injury, Knee pain fracture. Radiology results: X-ray (ST) X-Ray: . Radiologist interpretation negative for fracture. Patient was provided with an Jayce wrap. Home care instructions and follow-up instructions provided. Patient states understanding of information. Patient in agreement with treatment plan. Impression and Plan Diagnosis Left knee pain ([id number] M25.562, Discharge, Medical) Plan Patient was given the following educational materials: Acute Knee Pain, Adult, Puww-oz-Zdsm. Follow up with: Erin Wood Toradol intramuscular shot has been provided for you in the urgent care this medication can decrease pain for 36-48 hours. There is no obvious fracture or deformity on review the x-ray today. Official radiological interpretation will be available in the next few hours you will be notified of any discrepancy in the interpretation. If the pain continues or fails to resolve Follow-up with Dr. Mcguire trade specialist You are welcome to follow up with your trade specialist or can follow up with our local specialist Dr. Mcguire's office is located at [address] [place] [address] Can use the Jayce wrap to help hold on an ice pack, do not apply ice directly to the skin Apply an Ice pack or cold pack for 15 to 20 minutes Treatment done remove the ice pack and wrap the knee with the Jayce wrap for another 15 to 20 minutes Can repeat this every 1-2 hours this will help decrease inflammation and pain Alternate Tylenol and Motrin for any pain or discomfort . Counseled: Patient, Regarding diagnosis, Regarding diagnostic results, Regarding treatment plan, Regarding prescription, Patient indicated understanding of instructions. [facility] Consent Formson 06-29-2021 Consent Forms [id number] .00OTGTIFF [facility] Consent Forms [id number] .00OTGTIFF Normal [facility] ED Clinical Summaryon 2020 ED Clinical Summary [facility] ? Urgent Care [address] [place] [id number] Clinical Summary PERSON INFORMATION Name: JEFFREY YANG Age: 36 Years Sex: FEMALE : 1985 MRN: Acct#: Visit Reason: UC - Knee Pain or Swelling; LEFT KNEE PAIN Arrival: 06/26/2021 15:44:38 Discharge: 06/26/2021 17:16:00 LOS: 000 01:32 Check In: 06/26/2021 15:44:38 Checkout: 06/26/2021 17:16:00 Address: [address] [place] [address] PCP: Erin Wood CNP PROVIDER INFORMATION Provider Role Assigned Unassigned Anuel Cook ED PA 06/26/2021 15:46:36 Julio RN, Ericka Rojas ED Nurse 06/26/2021 15:50:31 VITALS INFORMATION Vital Sign Triage Latest Temperature Tympanic Temperature Temporal Artery Pulse Rate O2 Sat 98 % 98 % Respiratory Rate Blood Pressure /90 mmHg /90 mmHg MEDICAL INFORMATION Medications Given: Medication Dose Route ketorolac (Toradol) 60 mg IM Allergy Information: No Known Medication Allergies PHYSICIAN DOCUMENTATION DISCHARGE INFORMATION: Discharge Disposition: Home Discharge Location: Home PATIENT EDUCATION INFORMATION Instructions: Acute Knee Pain, Adult, Ecao-ow-Dypl Follow-Up: With: Address: When: Erin Wood [address] [place] [address] Business (1) Comments: Toradol intramuscular shot has been provided for you in the urgent care this medication can decrease pain for 36-48 hours. There is no obvious fracture or deformity on review the x-ray today. Official radiological interpretation will be available in the next few hours you will be notified of any discrepancy in the interpretation. If the pain continues or fails to resolve Follow-up with Dr. Mcguire trade specialist You are welcome to follow up with your trade specialist or can follow up with our local specialist Dr. Mcguire's office is located at [address] [place] [address] Can use the Jayce wrap to help hold on an ice pack, do not apply ice directly to the skin Apply an Ice pack or cold pack for 15 to 20 minutes Treatment done remove the ice pack and wrap the knee with the Jayce wrap for another 15 to 20 minutes Can repeat this every 1-2 hours this will help decrease inflammation and pain Alternate Tylenol and Motrin for any pain or discomfort DIAGNOSIS: Left knee pain Patient Understands: Yes - Patient/family/caregi feroz verbalizes understanding of instructions given Comment: Normal [facility] ED Patient Summaryon 021 ED Patient Summary [facility] ? Urgent Care [address] [place] [address] [id number] PATIENT DISCHARGE INSTRUCTIONS Patient Information Name: JEFFREY YANG Age: 36 Years Date of : 1985 Reason For Visit: UC - Knee Pain or Swelling; LEFT KNEE PAIN Arrival Time: 06/26/2021 15:44:38 Primary Care Physician: Erin Wood CNP Attending Physician: Anuel Cook Comment: Patient Education With: Address: When: Erin Wood [address] [place] [address] [facility] (1) Comments: Toradol intramuscular shot has been provided for you in the urgent care this medication can decrease pain for 36-48 hours. There is no obvious fracture or deformity on review the x-ray today. Official radiological interpretation will be available in the next few hours you will be notified of any discrepancy in the interpretation. If the pain continues or fails to resolve Follow-up with Dr. Mcguire trade specialist You are welcome to follow up with your trade specialist or can follow up with our local specialist Dr. Mcguire's office is located at [address] [place] [address] Can use the Jayce wrap to help hold on an ice pack, do not apply ice directly to the skin Apply an Ice pack or cold pack for 15 to 20 minutes Treatment done remove the ice pack and wrap the knee with the Jayce wrap for another 15 to 20 minutes Can repeat this every 1-2 hours this will help decrease inflammation and pain Alternate Tylenol and Motrin for any pain or discomfort Acute Knee Pain, Adult Many things can cause knee pain. Sometimes, knee pain is sudden (acute) and may be caused by damage, swelling, or irritation of the muscles and tissues that support your knee. The pain often goes away on its own with time and rest. If the pain does not go away, tests may be done to find out what is causing the pain. Follow these instructions at home: Pay attention to any changes in your symptoms. Take these actions to relieve your pain. If you have a knee sleeve or brace: ? Wear the sleeve or brace as told by your doctor. Remove it only as told by your doctor. ? Loosen the sleeve or brace if your toes: ? Tingle. ? Become numb. ? Turn cold and blue. ? Keep the sleeve or brace clean. ? If the sleeve or brace is not waterproof: ? Do not let it get wet. ? Cover it with a watertight covering when you take a bath or shower. Activity ? Rest your knee. ? Do not do things that cause pain. ? Avoid activities where both feet leave the ground at the same time (high-impact activities). Examples are running, jumping rope, and doing jumping jacks. ? Work with a physical therapist to make a safe exercise program, as told by your doctor. Managing pain, stiffness, and swelling ? If told, put ice on the knee: ? Put ice in a plastic bag. ? Place a towel between your skin and the bag. ? Leave the ice on for 20 minutes, 2?3 times a day. ? If told, put pressure (compression) on your injured knee to control swelling, give support, and help with discomfort. Compression may be done with an elastic bandage. General instructions ? Take all medicines only as told by your doctor. ? Raise (elevate) your knee while you are sitting or lying down. Make sure your knee is higher than your heart. ? Sleep with a pillow under your knee. ? Do not use any products that contain nicotine or tobacco. These include cigarettes, e-cigarettes, and chewing tobacco. These products may slow down healing. If you need help quitting, ask your doctor. ? If you are overweight, work with your doctor and a food expert (dietitian) to set goals to lose weight. Being overweight can make your knee hurt more. ? Keep all follow-up visits as told by your doctor. This is important. Contact a doctor if: ? The knee pain does not stop. ? The knee pain changes or gets worse. ? You have a fever along with knee pain. ? Your knee feels warm when you touch it. ? Your knee gives out or locks up. Get help right away if: ? Your knee swells, and the swelling gets worse. ? You cannot move your knee. ? You have very bad knee pain. Summary ? Many things can cause knee pain. The pain often goes away on its own with time and rest. ? Your doctor may do tests to find out the cause of the pain. ? Pay attention to any changes in your symptoms. Relieve your pain with rest, medicines, light activity, and use of ice. ? Get help right away if you cannot move your knee or your knee pain is very bad. This information is not intended to replace advice given to you by your health care provider. Make sure you discuss any questions you have with your health care provider. Document Revised: 03/29/2019 Document Reviewed: 03/29/2019 [employer] Patient Education ? 2019 [employer]. Medication Information: The e (more content not included)... Normal [facility] Urgent Care [place] 021 Urgent Care Record [facility] ? Urgent Care [address] [id number] PATIENT DISCHARGE INSTRUCTIONS Patient Information Name: JEFFREY YANG Age: 36 Years Date of : 1985 MRN: [id number] Reason For Visit: UC - Knee Pain or Swelling; LEFT KNEE PAIN Arrival Time: 06/26/2021 15:44:38 Primary Care Physician: Erin Wood CNP Attending Physician: Anuel Cook Comment: Visit Diagnosis: Diagnoses This Visit Left knee pain (M25.562) UC - Knee Pain or Swelling ([id number]) If you received any narcotics, sedation, or any other medication that causes drowsiness for the next 24 hours, unless otherwise directed: ? Do not drive a car. ? Do not operate machinery such as power tools, lawn mowers, drills, sewing machines, or stoves ? Avoid alcoholic beverages and drugs for allergies, nerves, or sleep ? Do not make important personal or business decisions or sign any legal documents With: Address: When: Erin Wood [facility] [place] [address] Business (1) Comments: Toradol intramuscular shot has been provided for you in the urgent care this medication can decrease pain for 36-48 hours. There is no obvious fracture or deformity on review the x-ray today. Official radiological interpretation will be available in the next few hours you will be notified of any discrepancy in the interpretation. If the pain continues or fails to resolve Follow-up with Dr. Mcguire trade specialist You are welcome to follow up with your trade specialist or can follow up with our local specialist Dr. Mcguire's office is located at [address] [place] [address] Can use the Jayce wrap to help hold on an ice pack, do not apply ice directly to the skin Apply an Ice pack or cold pack for 15 to 20 minutes Treatment done remove the ice pack and wrap the knee with the Jayce wrap for another 15 to 20 minutes Can repeat this every 1-2 hours this will help decrease inflammation and pain Alternate Tylenol and Motrin for any pain or discomfort Medication Information: The exam and treatment you received today in the [facility] were for an urgent problem and are not intended as complete care. It is important for you to follow up with a doctor, nurse practitioner, or physician?s outreach assistant for ongoing care. If your symptoms become worse or you do not improve as expected and you are unable to reach your usual health care provider, you should return to the Emergency Department, we are available 24 hours a day. For those patients who have received Radiology results, the interpretation of your X-ray as given to you by our Urgent Care physician is only a preliminary report. The Radiologist will review your films and if there is a change in the diagnosis you will be notified by phone. Please make sure you have provided a working phone number so we can reach you if necessary. In the event that you had a lab culture while you were a patient in the Urgent Care, you will be notified by phone if there is a need to change your antibiotic. Please make sure you have provided a working phone number so we can reach you if necessary. [facility] Care has provided you with a complete list of medications post discharge. Please inform your outdoor adventure leader/provider of your visit and for further instruction on these medications. Any specific questions regarding your chronic medications and dosages should be discussed with your primary care physician(s) and/or pharmacist. Medications That Were Updated - Follow Below Instructions Other Medications Updated: pantoprazole (pantoprazole 40 mg oral delayed release tablet) 1 tab(s) Oral every day. Visit Information Allergies: Substance Reaction Symptoms Type Comments No Known Medication Allergies Drug Vital Signs: Vitals and Measurements this Visit (last charted value for your 06/26/2021 visit) Vital Signs This Visit Temperature Oral: 37.2 DegC Peripheral Pulse Rate: 84 bpm Respiratory Rate: 18 br/min Systolic Blood Pressure: 126 mmHg Diastolic Blood Pressure: 90 mmHg SpO2: 98 % Oxygen Therapy: Room air Measurements This Visit Height/Length Estimated: 157.48 cm Weight Estimated: 83.91 kg Body Mass Index Estimated: 34 kg/m2 Problems List: Problem Onset Comments Hiatal hernia Hx of gastroesophageal reflux (GERD) None Smoker 02-MAY-2014 12:37:00<$> Added secondary to documentation in Social History. Patient Education Acute Knee Pain, Adult Many things can cause knee pain. Sometimes, knee pain is sudden (acute) and may be caused by damage, swelling, or irritation of the muscles and tissues that support your knee. The pain often goes away on its own with time and rest. If the pain does not go away, tests may be done to find out what is causing the pain. Follow these instructions at home: Pay attention to any changes (more content not included)... Normal [facility] XR Knee Complete Lefton 06-01 XR Knee Complete Left EXAM: XR Knee Complete Left 06/26/2021 4:06 PM EDT [facility] CLINICAL STATEMENT: left knee pain COMPARISON: No prior studies are available at the time of dictation. TECHNIQUE: AP and lateral views of the left knee are submitted. FINDINGS: There is no acute fracture and/or dislocation. The joint spaces are preserved. There is no significant joint effusion. Soft tissues are unremarkable. Bone mineralization is within normal limits for the patient's age. IMPRESSION: Unremarkable knee radiograph. FOLLOW UP: Follow-up as clinically indicated. Final Dictated by: Vanessa Minor MD Dictated DT/TM: 06/27/21 0:07 Signed (Electronic Signature): Vanessa Minor MD 06/27/21 0:07 am Technologist: Andrea PANCHAL [facility] Vital Signs Date Time Vital Sign Value Performing Clinician Facility 07-26-2024 12:00-0400 Body temperature 98.4 [degF] ARELIS Wood Work Phone: [facility] 07-26-2024 12:00-0400 Diastolic blood pressure 67 mm[Hg] ARELIS Wood Work Phone: [facility] 07-26-2024 12:00-0400 Heart rate 64 /min ZIGZAG APPLIQUERBhakti Wood Work Phone: [facility] 07-26-2024 12:00-0400 Respiratory rate 18 /min ZIGZAG APPLIQUERBhakti Wood Work Phone: [facility] 07-26-2024 12:00-0400 SaO2% (BldA) [Mass fraction] 99 % ZIGZAG APPLIQUERBhakti Wood Work Phone: [facility] 07-26-2024 12:00-0400 Systolic blood pressure 102 mm[Hg] ARELIS Wood Work Phone: [facility] 07-26-2024 04:18-0400 Body height 157.48 cm ZIGZAG APPLIQUERBhakti Wood Work Phone: [facility] 07-26-2024 04:18-0400 Body weight 70.8 kg ARELIS Wood Work Phone: [facility] 07-26-2024 03:53-0400 Diastolic blood pressure 71 mm[Hg] ARELIS Wood Work Phone: [facility] 07-26-2024 03:53-0400 Heart rate 72 /min ZIGZAG APPLIQUERBhakti Wood Work Phone: [facility] 07-26-2024 03:53-0400 Respiratory rate 16 /min ZIGZAG APPLIQUERBhakti Jessicaacher Work Phone: [facility] 07-26-2024 03:53-0400 SaO2% (BldA) [Mass fraction] 97 % ZIGZAG APPLIQUERBhakti Jessicaacher Work Phone: [facility] 07-26-2024 03:53-0400 Systolic blood pressure 129 mm[Hg] ZIGZAG APPLIQUERBhakti Jessicaacher Work Phone: [facility] 07-26-2024 00:34-0400 Body temperature 97.9 [degF] ZIGZAG APPLIQUERBhakti Wood Work Phone: [facility] 07-26-2024 00:31-0400 Body height 157.48 cm ZIGZAG APPLIQUERBhakti Del Valler Work Phone: [facility] 07-26-2024 00:31-0400 Body weight 74.84 kg ZIGZAG APPLIQUERBhakti Del Valler Work Phone: [facility] 09-14-2023 14:00-0500 Body height 157.48 cm Erin Israel Other [employer] Other 09-14-2023 14:00-0500 Body mass index (BMI) [Ratio] 30.54 kg/m2 Erin Israel Other [employer] Other 09-14-2023 14:00-0500 Body weight 75.75 kg Erin Aracelybhanuart Other [employer] Other 09-14-2023 14:00-0500 Diastolic blood pressure 62 mm[Hg] Erin Wood Other [employer] Other 09-14-2023 14:00-0500 SaO2% (BldA) [Mass fraction] 97 % Erin Wood Other [employer] Other 09-14-2023 14:00-0500 Systolic blood pressure 124 mm[Hg] Erin Wood Other [employer] Other 09-05-2023 15:04-0500 Diastolic blood pressure 65 mm[Hg] Deborah Coronel MD Work Phone: [facility] 09-05-2023 15:04-0500 Heart rate 72 /min Deborah Coronel MD Work Phone: [facility] 09-05-2023 15:04-0500 Respiratory rate 16 /min Deborah Coronel MD Work Phone: [facility] 09-05-2023 15:04-0500 SaO2% (BldA) [Mass fraction] 99 % Deborah Coronel MD Work Phone: [facility] 09-05-2023 15:04-0500 Systolic blood pressure 107 mm[Hg] Deborah Coronel MD Work Phone: [facility] 09-05-2023 14:47-0500 Body temperature 97.39 [degF] Deborah Coronel MD Work Phone: [facility] 09-05-2023 13:40-0500 Body height 157.5 cm Deborah Coronel MD Work Phone: [facility] 09-05-2023 13:40-0500 Body mass index (BMI) [Ratio] 31.09 kg/m2 Deborah Coronel MD Work Phone: [facility] 09-05-2023 13:40-0500 Body weight 77.11 kg Deborah Coronel MD Work Phone: [facility] 07-25-2023 15:00-0400 Body height 157.48 cm Erin Wood Other [employer] Other 07-25-2023 15:00-0400 Body mass index (BMI) [Ratio] 32.19 kg/m2 Erin Wood Other [employer] Other 07-25-2023 15:00-0400 Body weight 79.83 kg Erin Wood Other [employer] Other 07-25-2023 15:00-0400 Diastolic blood pressure 82 mm[Hg] Erin Wood Other [employer] Other 07-25-2023 15:00-0400 SaO2% (BldA) [Mass fraction] 98 % Erin Wood Other [employer] Other 07-25-2023 15:00-0400 Systolic blood pressure 122 mm[Hg] Erin Wood Other [employer] Other 07-19-2023 14:15-0400 Body height 157.48 cm Imad Asaad Other [employer] Other 07-19-2023 14:15-0400 Body mass index (BMI) [Ratio] 32 kg/m2 Imad Asaad Other [employer] Other 07-19-2023 14:15-0400 Body weight 79.38 kg Imad Asaad Other [employer] Other 07-19-2023 14:15-0400 Diastolic blood pressure 88 mm[Hg] Imad Asaad Other [employer] Other 07-19-2023 14:15-0400 Systolic blood pressure 139 mm[Hg] Imad Asaad Other [employer] Other 07-11-2023 09:00-0400 Body height 157.48 cm Erin Wood Other [employer] Other 07-11-2023 09:00-0400 Body mass index (BMI) [Ratio] 31.93 kg/m2 Erin Wood Other [employer] Other 07-11-2023 09:00-0400 Body weight 79.2 kg Erin Wood Other [employer] Other 07-11-2023 09:00-0400 Diastolic blood pressure 78 mm[Hg] Erin Wood Other [employer] Other 07-11-2023 09:00-0400 SaO2% (BldA) [Mass fraction] 98 % Erin Wood Other [employer] Other 07-11-2023 09:00-0400 Systolic blood pressure 120 mm[Hg] Erin Wood Other [employer] Other 05-31-2023 13:30-0400 Body height 157.48 cm Erin Wood Other [employer] Other 05-31-2023 13:30-0400 Body mass index (BMI) [Ratio] 32.92 kg/m2 Erin Rohrbacher Other [employer] Other 05-31-2023 13:30-0400 Body weight 81.65 kg Erin Del Valler Other [employer] Other 05-31-2023 13:30-0400 Diastolic blood pressure 90 mm[Hg] Erin Aracelyacher Other [employer] Other 05-31-2023 13:30-0400 SaO2% (BldA) [Mass fraction] 98 % Erin Aracelyacher Other [employer] Other 05-31-2023 13:30-0400 Systolic blood pressure 115 mm[Hg] Erin Aracelyacher Other [employer] Other 01-27-2023 12:00-0400 Body height 157.48 cm Erin Hendricksjenabhanur Other [employer] Other 01-27-2023 12:00-0400 Body mass index (BMI) [Ratio] 35.84 kg/m2 Erin Aracelyacher Other [employer] Other 01-27-2023 12:00-0400 Body weight 88.91 kg Erin Aracelyacher Other [employer] Other 01-27-2023 12:00-0400 Diastolic blood pressure 89 mm[Hg] Erin Aracelyacher Other [employer] Other 01-27-2023 12:00-0400 SaO2% (BldA) [Mass fraction] 98 % Erin Aracelyacher Other [employer] Other 01-27-2023 12:00-0400 Systolic blood pressure 141 mm[Hg] Erin Hendricksjenabhanuart Other [employer] Other 01-15-2022 11:15-0400 Body height 157.48 cm Erin Aracelybhanuart Other [employer] Other 01-15-2022 11:15-0400 Body mass index (BMI) [Ratio] 37.49 kg/m2 Erin Israel Other [employer] Other 01-15-2022 11:15-0400 Body temperature 97.7 [degF] Erin Israel Other [employer] Other 01-15-2022 11:15-0400 Body weight 92.99 kg Erin Israel Other [employer] Other 01-15-2022 11:15-0400 Diastolic blood pressure 70 mm[Hg] Erin Israel Other [employer] Other 01-15-2022 11:15-0400 SaO2% (BldA) [Mass fraction] 97 % Erin Israel Other [employer] Other 01-15-2022 11:15-0400 Systolic blood pressure 128 mm[Hg] Erin Israel Other [employer] Other 11-16-2021 15:30-0500 Body height 157.48 cm Noman Corona Other [employer] Other 01-17-2022 15:30-0500 Body mass index (BMI) [Ratio] 36.94 kg/m2 Noman Bestxa Other [employer] Other 11-16-2021 15:30-0500 Body weight 91.63 kg Noman Olexa Other [employer] Other 08-10-2021 16:15-0400 Body height 157.48 cm Erin Wood Other [employer] Other 08-10-2021 16:15-0400 Body mass index (BMI) [Ratio] 36.76 kg/m2 Erin Wood Other [employer] Other 08-10-2021 16:15-0400 Body weight 91.17 kg Erin Wood Other [employer] Other 08-10-2021 16:15-0400 Diastolic blood pressure 60 mm[Hg] Erin Wood Other [employer] Other 08-10-2021 16:15-0400 Respiratory rate 18 /min Erin Wood Other [employer] Other 08-10-2021 16:15-0400 SaO2% (BldA) [Mass fraction] 98 % Erin Wood Other [employer] Other 08-10-2021 16:15-0400 Systolic blood pressure 138 mm[Hg] Erin Wood Other [employer] Other 07-27-2021 17:00-0400 Body height 157.48 cm Erin Wood Other [employer] Other 07-27-2021 17:00-0400 Body mass index (BMI) [Ratio] 36.58 kg/m2 Erin Wood Other [employer] Other 07-27-2021 17:00-0400 Body weight 90.72 kg Erin Wood Other [employer] Other 07-27-2021 17:00-0400 Diastolic blood pressure 82 mm[Hg] Erin Wood Other [employer] Other 07-27-2021 17:00-0400 Respiratory rate 18 /min Erin Wood Other [employer] Other 07-27-2021 17:00-0400 SaO2% (BldA) [Mass fraction] 99 % Erin Wood Other [employer] Other 07-27-2021 17:00-0400 Systolic blood pressure 122 mm[Hg] Erin Wood Other [employer] Other Encounters Encounter Date Encounter Type Care Provider Facility Start: 07-26-2024 End: 07-26-2024 Evaluation and management of inpatient ZIGZAG APPLIQUER Erin Wood Work Phone: [facility] Work Phone: Start: 07-26-2024 End: 07-26-2024 observation encounter ARELIS Wood Work Phone: [facility] Work Phone: Start: 07-12-2024 End: 07-12-2024 Patient encounter procedure ZIGZAG APPLIQUER Erin Wood Work Phone: [facility] [place] Work Phone: Start: 07-12-2024 End: 07-12-2024 ambulatory ARELIS Khan Israel Work Phone: [facility] Work Phone: Start: 07-12-2024 Encounter for genera l adult medical examination without abnormal findings Erin Wood [facility] Start: 07-03-2024 Patient encounter status ZIGZAG APPLIQUERBhakti Khan Israel Work Phone: [facility] Start: 09-26-2023 End: 09-26-2023 ambulatory Erin Wood Other [employer] Other Start: 09-26-2023 Nursing evaluation o f patient and report Erin Wood [facility] Start: 09-14-2023 End: 09-14-2023 ambulatory Erin Wood Other [employer] Other Start: 09-14-2023 Office outpatient visit 15 minutes Erin Wood [facility] Start: 09-12-2023 End: 09-12-2023 ambulatory Erin Wood Other [employer] Other Start: 09-12-2023 Telephone encounter Erin washburn [facility] Start: 09-05-2023 End: 09-05-2023 ambulatory NOEMY PACK [employer] Other Start: 09-05-2023 Telephone encounter Simran Jean [facility] G[facility] Start: 09-05-2023 End: 09-05-2023 Subsequent hospital visit by physician Deborah Coronel MD Work Phone: Ambulatory Surgery Comment on above: Loss of weight [R63. 4] Start: 08-26-2023 End: 08-26-2023 ambulatory Erin Wood Other [employer] Other Start: 08-26-2023 Telephone encounter Erin Chi her [facility] Start: 08-10-2023 End: 08-10-2023 ambulatory Noemy Hong APRN.EMPLOYEE HEALTH NURSE Work Phone: Gastroenterology Comment on above: Loss of weight (Prim ana Dx); Marijuana use; Nausea and vomiting, unspecified vomiting type; Gastroesophageal reflux disease, unspecified whether esophagitis present Start: 08-10-2023 End: 08-10-2023 Telemedicine consultation with patient Noemy Hong ZIGZAG APPLIQUER.EMPLOYEE HEALTH NURSE Work Phone: [facility] Start: 07-25-2023 End: 07-25-2023 ambulatory Erin Wood Other [employer] Other Start: 07-25-2023 Encounter for genera l adult medical examination without abnormal findings Erin Wood [facility] Start: 07-25-2023 Initial preventive medicine new pt age 18-39yrs Erin Wood [facility] Start: 07-19-2023 End: 07-19-2023 ambulatory Imad Asaad Other [employer] Other Start: 07-19-2023 Office outpatient ne w 45 minutes Imad Asaad [facility] G[facility] Start: 07-11-2023 End: 07-11-2023 ambulatory Erin Wood Other [employer] Other Start: 07-11-2023 Office outpatient visit 15 minutes Erin Wood [facility] Start: 06-01-2023 End: 06-01-2023 ambulatory Erin Wood Other [employer] Other Start: 06-01-2023 Telephone encounter Erin Chi her [facility] Start: 05-31-2023 End: 05-31-2023 ambulatory Erin Israel Other [employer] Other Start: 05-31-2023 Office outpatient visit 15 minutes Erin Wood [facility] Start: 02-17-2023 End: 02-17-2023 ambulatory Erin Israel Other [employer] Other Start: 02-17-2023 Telephone encounter Erin Mireles her [facility] Start: 02-16-2023 End: 02-16-2023 ambulatory ZIGZAG APPLIQUER Erin Israel Work Phone: [facility] Work Phone: Start: 02-16-2023 End: 02-16-2023 Patient encounter procedure ZIGZAG APPLIQUER Erin Wood Work Phone: [facility] [place] Work Phone: Start: 01-27-2023 End: 01-27-2023 ambulatory Erin Israel Other [employer] Other Start: 01-27-2023 Office outpatient visit 25 minutes Erin Wood [facility] Start: 01-15-2022 End: 01-15-2022 ambulatory Erin Wood Other [employer] Other Start: 01-15-2022 Office outpatient visit 15 minutes Erin Wood [facility] Start: 11-16-2021 End: 11-16-2021 ambulatory Noman Corona Other [employer] Other Start: 11-16-2021 Office outpatient ne w 30 minutes Noman Corona [facility] Start: 11-11-2021 End: 11-11-2021 ambulatory Erin Wood Other [employer] Other Start: 11-11-2021 Telephone encounter Erin Hendrickseyad her [facility] Start: 10-22-2021 End: 10-22-2021 ambulatory Erin Israel Other [employer] Other Start: 10-22-2021 Telephone encounter Erin Chi her [facility] Start: 08-10-2021 Office outpatient visit 15 minutes Erin Wood [facility] Start: 07-27-2021 Encounter for genera l adult medical examination without abnormal findings Erin Wood [facility] Start: 07-27-2021 Periodic preventive med est patient 18-39 yrs Erin Wood [facility] Procedures Date Procedure Procedure Detail Performing Clinician Start: 07-26-2024 Computed tomography of abdomen and pelvis with contrast ZIGZAG APPLIQUER Erin Wood Work Phone: Start: 09-05-2023 Esophagogastroduodenoscopy transoral diagnostic Noemy Pack ZIGZAG APPLIQUER.EMPLOYEE HEALTH NURSE Work Phone: Start: 09-05-2023 Colonoscopy flx dx w/collj spec when pfrmd Noemy Pack ZIGZAG APPLIQUER.EMPLOYEE HEALTH NURSE Work Phone: Plan of Treatment Date Care Activity Detail Author Start: 07-26-2024 Hospital admission [facility] Start: 07-26-2024 [facility] Start: 07-26-2024 Computed tomography of abdomen and pelvis with contrast CT abdomen pelvis w con [facility] Start: 07-26-2024 CT Abdomen and Pelvi s W contrast IV [facility] Start: 07-01-2024 Covid-19 Vaccine ( season) Covid-19 Vaccine ( season) [facility] Start: 07-01-2024 Influenza vaccination Influenza Vacc ine (#1) [facility] Start: 07-01-2023 Influenza vaccination Influenza Vacc ine (#1) [facility] Start: 10-31-2022 Depression Assessment Depression Ass essment [facility] Start: 2016 HPV Testing HPV Testing [facility] Start: 2007 Pap Testing Pap Testing [facility] Start: 2007 Screening for malignant neoplasm of cervix Cervical Cancer Screening [facility] Start: 2005 Hepatitis B Vaccine (1 of 3 - 19+ 3-dose series) Hepatitis B Vaccine (1 of 3 - 19+ 3-dose series) [facility] Start: 2005 Urine microalbumin profile DTaP,Tdap,Td Vaccine (1 - Tdap) [facility] Start: 2004 Anxiety Screening Anxiety Screening [facility] Start: 2004 Depression Screening Depression Scre ening [facility] Start: 2004 Hepatitis C Screening [facility] Start: 2004 Hepatitis C screening [facility] Start: 2004 HIV Screening HIV Screening [facility] Start: 2004 HIV screening HIV Screening [facility] Start: 1986 Covid-19 Vaccine (#1) Covid-19 Vacci ne (#1) [facility] Start: 1986 Hepatitis B Vaccine (1 of 3 - 3-dose series) Hepatitis B Vaccine (1 of 3 - 3-dose series) [facility] End: 08-10-2024 COLONOSCOPY DIAGNOSTIC COLONOSCOPY DIAGNOSTIC Endoscopy Routine Loss of weight 1 Occurrences starting 08/10/2023 until 08/10/2024 [facility] Work Phone: Comment on above: 1 Occurrences starti ng 08/10/2023 until 08/10/2024 End: 08-10-2024 EGD DIAGNOSTIC EGD DIAGNOSTIC Endoscopy Routine Loss of weight Marijuana use Nausea and vomiting, unspecified vomiting type Gastroesophageal reflux disease, unspecified whether esophagitis present 1 Occurrences starting 08/10/2023 until 08/10/2024 [facility] Work Phone: Comment on above: 1 Occurrences starti ng 08/10/2023 until 08/10/2024 Patient Education Gastritis (DC) Know your Meds [facility] Work Phone: Patient referral [facility] Work Phone: [facility] Immunization Date Immunization Notes Care Provider Fa hussainty 07-02-2021 Kenalog -40 mg Erin whitt Other [employer] [facility] [employer] Other 10-29-2019 influenza, injectable, quadrivalent, preservative free Erin Wood Other [facility] 10-29-2019 influenza virus vaccine, unspecified formulation Noemy Hong APRN.EMPLOYEE HEALTH NURSE Work Phone: [facility] Payers Date Payer Category Payer Private Health Insurance [id number] 2024 Self-pay [id number] 2022 Blue Cross Blue Shield [id number] 2022 Unknown [facility] BLUE CARD PPO OOS [id number] 2022-Present [phone] [address] [place] [address] PPO [id number] 2018 Blue Cross Blue Shield SUIAN [id number] Medicaid [place] Advantage [id number] Unknown [id number] Social History Date Type Detail Facility Unknown if ever smoked [employer] Other Start: 08-10-2023 End: 09-05-2023 Sex Assigned At [employer] Other Start: 1985 Sex Assigned At Female [facility] unknown [facility] Start: 08-10-2023 End: 09-05-2023 History of Social function [facility] National Score (1-10 0), lower number is lower risk 62 [facility] Start: 10-26-2021 Gender identity Identifies as female gender (finding) [facility] Start: 10-26-2021 Sexual orientation Heterosexual (finding) [facility] Start: 11-06-2018 End: 07-26-2024 Tobacco smoking status NHIS Smoker (finding) [facility] Start: 09-05-2023 Tobacco smoking status NHIS Never smoked tobacco [facility] Start: 09-05-2023 Tobacco use and exposure Smokeless tobacco non-user [facility] Functional Status Date Assessment Result Facility 07-26-2024 Functional status Patient at Baseline [facility] Work Phone: Mental Status Date Assessment Result Facility 07-26-2024 Cognitive function Cognitive Sta tus Patient at Baseline [facility] Work Phone: Clinical Notes 03-04-2020 to 07-26-2024 Note Date & Type Note Facility 07-26-2024 History and physi milagros note Note Date/Time July 26, 2024 9:55am [facility] [address] [place] [address] General Surgery H&P Signed Patient: Jeffrey Yang MR #: [id number] : 1985 Acct:[id number] Age/Sex: 39 / F Adm Date: 4 Loc: Room: [address] [place] [address] Type: ADM IN Attending Dr: Rodrigo Shi MD Copies to: MD Erin Rhodes APRN, EMPLOYEE HEALTH NURSE~ Date of Service: 07/26/2024 HPI History of Present Illness Chief complaint: Abdominal pain HPI: The patient is a 39-year-old female who presents with 1 day history of left upper quadrant abdominal pain. This occurred after eating. Pain was fairly severe. It was associated with vomiting. Patient states that a few days before, she had had an episode of similar pain. Patient has history of gastritis. She is on proton pump inhibitor. She states she had an EGD and colonoscopy done earlier this year at [facility]. Patient presented to the emergency room. CT scan showed a mildly distended retrocecal appendix with enhancing wall and subtle adjacent periappendiceal stranding. Acute appendicitis is possible. Patient is not having any other abdominal pain including the right lower quadrant. The patient's presenting abdominal pain resolved this morning. Review of Systems Constitutional Constitutional: Denies fever(s) Cardiovascular Cardiovascular: Denies chest pain Respiratory Respiratory: Denies dyspnea Gastrointestinal Gastrointestinal: Denies abdominal pain and Denies change in stool character Genitourinary Genitourinary: Denies difficulty voiding Neurologic Neurologic: Denies syncope [facility] Medical History (Updated 07/26/24 @ 09:58 by Rodrigo Shi MD) Vitamin D deficiency Tobacco abuse Renal calculi Plantar fasciitis of left foot Lung nodule, multiple Iron deficiency History of abnormal cervical Pap smear Hiatal hernia GERD (gastroesophageal reflux disease) Surgical History Hx of cholecystectomy Family History (Updated 11/29/23 @ 11:30 by Provider Conversion) Father Hyperlipidemia Hypertension Family/Other Legacy FamHx Problem: UNCLE HAD COLON CANCER:1 sister 24, DM Mother Hypertension Mother Hypertension Sister Diabetes Social History Smoking Status: Current every day smoker Tobacco Type: cigars Substance Use Type: Marijuana Meds Medications and Allergies Allergies No Known Allergies Allergy (Verified 07/26/24 00:31) Home Medications pantoprazole 40 mg tablet,delayed release 40 mg PO BID 01/11/24 [History Confirmed 07/26/24] Exam Physical Exam Vital Signs: Temp Pulse Resp BP Pulse Ox O2 Del Method 98.7 F 73 16 106/64 99 Room Air 07/26/24 08:00 07/26/24 08:00 07/26/24 08:00 07/26/24 08:00 07/26/24 08:00 07/26/24 08:00 Const General: cooperative and no acute distress Orientation: alert Eyes Sclera: sclerae normal (anicteric) Resp Auscultation: clear to auscultation bilaterally Cardio Rate: regular rate Rhythm: regular rhythm GI Inspection: non-distended Palpation: soft and nontender Neuro General: patient alert and patient awake Extrem General: no edema Results - Gen. Surgery Intake and Output 24 hour I&O: Intake & Output 07/25/24 07/26/24 07/26/24 23:59 07:59 15:59 Intake Total 1100 / 1100 Output Total Balance 1099 / 1099 Weight 70.8 kg Labs 07/26/24 00:46 07/26/24 00:46 Laboratory Results - last 72 hr 07/26/24 02:06: Urine Color Light-yellow, Urine Appearance Clear, Urine pH 6.0, Ur Specific [place] 1.019, Urine Protein Negative, Urine Glucose (UA) 30 H, Urine Ketones 4+ H, Urine Occult Blood 2+ H, Urine Nitrite Negative, Urine Bilirubin Negative, Urine Urobilinogen Normal, Ur Leukocyte Esterase Negative, Urine RBC 5-9 H, Urine WBC 1-2, Ur Squamous Epith Cells 1-2, Urine Bacteria Rare, Hyaline Casts None, Urine Mucus Rare, Urine HCG, Qual Negative 07/26/24 00:46: Corrected WBC 17.2 H, Uncorrected WBC Count 17.2 H, RBC 4.69, Hgb 14.8, Hct 43.0, MCV 91.6, MCH 31.5, MCHC 34.3, RDW 13.1, Plt Count 345, MPV 7.6, Neut % (Auto) 83.5, Lymph % (Auto) 11.4, [place] % (Auto) 3.8, Eos % (Auto) 0.8, Baso % (Auto) 0.5, Nucleat RBC Rel Count 0.0, Neut # (Auto) 14.4 H, Lymph #(Auto) 2.0, [place] # (Auto) 0.6, Eos # (Auto) 0.1, Baso # (Auto) 0.1, Monocyte Dist Width 16.88, PHA Creatinine Clear 106.25, Sodium 139, Potassium 3.5, Chloride 105, Carbon Dioxide 23.2, Anion Gap 14.3, BUN 10, Creatinine 0.68, Est GFR (CKD-EPI) > 60.0, Glucose 163 H, Calcium 9.4, Total Bilirubin 1.5 H, AST 12 L, ALT 9, Alkaline Phosphatase 68, Total Protein 7.2, Albumin 4.6, Globulin 2.6,Albumin/Globulin Ratio 1.8, Lipase 11.0 A&P - General Surgery (1) Left upper quadrant pain: (2) Gastritis: Qualifiers: Gastritis type: other gastritis Chronicity: chronic Gastritis bleeding: without bleeding Qualified Code(s): K29.50 - Unspecified chronic gastritis without bleeding (3) Abnormal CT of the abdomen: Plan Patient's abdominal pain is resolved. Patient has not had any evidence of acuteappendicitis. Will advance diet. If patient tolerates diet, can discharge home. Documented By: Rodrigo Shi MD 07/26/24 0954 Signed By: <Electronically signed by MD Rodrigo Shi> 07/26/24 0958 [facility] Work Phone: 1(229) 262-960111-27-2023 Evaluation note* Encounter Date Diagnosis Assessment Notes Treatment Notes Treatment Clinical Notes Aug, Urinary urgency (ICD-10 - R39.15) [employer] Other 11-15-2023 Evaluation note* Encounter Date Diagnosis Assessment Notes Treatment Notes Treatment Clinical Notes Aug, Encounter for smoking cessation counseling (ICD-10 - Z71.6) Discussed Chantix today to help quit smoking. Start with monthly starter pack and follow-up every 4 weeks with continuing monthly pack. Discussed nicotine withdrawal symptoms as well as S/E to medication. If suicidal/homicidal idea occur, stop medication and go to ER. Discussed smoking cessation benefits in detail today as well as slow quit approach. Aug, Renal calculi (ICD-10 - N20.0) General information about stone prevention was discussed including ample water intake, low salt and protein diet. Call if any reoccurence of pain can refer to urology as needed Aug, Tobacco abuse (ICD-10 - Z72.0) We discussed possible complications of smoking including risk of heart disease, stroke, lung disease, and increase risk of cancer. Your goal is to quit smoking. The availability, risks, and benefits of medication used to treat nicotine addiction as releveant to you have been discussed. We are working together to achieve these goals with the following plan; barriers to these goals have been discussed. You have been given relevant education handouts and a summary of your care plan. Your next follow-up visit for this problem is six months, we will continue to ask progress for quitting and willingness to quit at each appointment. [employer] Other 11-06-2023 NoteHNO ID: [id number] Author: Precious Echevarria RN Service: ? Author Type: Registered Nurse Type: Nursing Progress Note Filed: 09/05/2023 2:54 PM Note Text: Physician at bedside to disucss procedure/findngs with patient.[facility]11-06-2023 Nurse Note* Precious Echevarria RN - 09/05/2023 2:54 PM EST Physician at bedside to disucss procedure/findngs with patient. [facility]11-06-2023 Nurse Note* Precious Echevarria RN - 09/05/2023 2:54 PM EST Physician at bedside to disucss procedure/findngs with patient. [facility] History and physical note * Noemy Hong APRN.CNP - 08/10/2023 3:00 PM EDT DISTANCE HEALTH VISIT This Team Access Model visit is a virtual encounter. It required patient- provider interaction for the medical decision making as documented below. REASON FOR VISIT: GERD HPI: Jeffrey Yang is a 38 year old female who presents for GERD, nausea/vomiting and unintentional weight loss. She endorses a 42 pound weight loss since October. She states that she was unable to keep any food or fluids down for approximately 3 weeks or so. She endorses chronic issues with acid reflux and heartburn. She was initially on omeprazole 40 mg daily and then switched to pantoprazole 40 mg daily. She states that her nausea and vomiting significantly improved after discontinuing the useof edibles. She does still occasionally experience morning nausea with intermittent vomiting. She averages 1-2 bowel movements daily. Patient denies dysphagia, early satiety, abdominal pain, changes in appetite, change in bowel habits, melena, hematochezia or hematemesis. No prior history of colonoscopy. History of colon cancer in her maternal uncle. She denies regular NSAID use. She smokes cigars occasionally. She endorses social alcohol intake and regular marijuana use. Past Clinical Work-Up: ALLERGIES Not on File PAST MEDICAL HISTORY Diagnosis Date Headache 03/04/2020 No past surgical history on file. No family history on file. Current Outpatient Medications Medication Sig pantoprazole DR (PROTONIX) 20 mg tablet Take 20 mg by mouth once daily. No current facility-administered medications for this visit. I have confirmed and edited, if necessary, the PFSH obtained by others. REVIEW OF SYSTEMS: GENERAL: No malaise or fevers, +unintentional weight loss RESPIRATORY: Negative for cough, hemoptysis, wheezing, dyspnea or shortness of breath CARDIOVASCULAR: Negative for chest pain, leg swelling, or palpitations GI: See HPI PHYSICAL EXAM: General - Normal, healthy, cooperative, in no acute distress Able to interact verbally by video conference Psych - ORIENTATION: normal to time place, person and situation Mood/Affect: AFFECT AND MOOD: Normal Head/Neuro - Normal size and shape Facial appearance normal Pulmonary - respiratory effort normal Cardiovascular - patient describes extremities normal, warm, no cyanosis,no clubbing, and no edema Abdominal - Not performed Skin - abnormal lesions not visualized Motor - patient seen sitting with Normal appearing strength and coordination ASSESSMENT/PLAN: Ms. Yang is a 38 year old female with a history of GERD presents for GERD, nausea/vomiting and unintentional weight loss. She endorses a 42 pound weight loss since October. She states that she was unable to keep any food or fluids down for approximately 3 weeks or so and avoided eating. She endorses chronic issues with acid reflux and heartburn. She is currenty on pantoprazole 40 mg daily. She states that her nausea and vomiting significantly improved after discontinuing the use of edibles. Irecommend an EGD and colonoscopy given her significant unintentional weight loss. I discussed her symptoms are likely related to cannabinoid hyperemesis syndrome and suggest avoiding marijuana. Procedure/risks were discussed with the patient in great detail including the risk of sedation and bleeding. Patient is agreeable with proceeding and instructed to call with any questions or concerns. 1. Loss of weight - ICD9: 783.21, ICD10: R63.4 (primary diagnosis) - EGD DIAGNOSTIC - COLONOSCOPY DIAGNOSTIC 2. Marijuana use - ICD9: 305.20, ICD10: F12.90 - EGD DIAGNOSTIC 3. Nausea and vomiting, unspecified vomiting type - ICD9: 787.01, ICD10: R11.2 - EGD DIAGNOSTIC 4. Gastroesophageal reflux disease, unspecified whether esophagitis present - ICD9: 530.81, ICD10: K21.9 - Discussed lifestyle modifications including limiting caffeine, no meals three hours before sleep,and head of bed elevation - EGD DIAGNOSTIC I spent more than 30 minutes [id number] with the patient and over half the time was devoted to counseling and/or coordination of care. This note was dictated using [employer] speech recognition software and may contain some errors that were a result of the program not accurately transcribing what was dictated. I have communicated my name and active licensure. The patient's identity and physical location wereverified at the time of this visit. Either the patient or their legal wine sales representative has been informed of the risks and benefits of -- and alternatives to -- treatment through a remote evaluation andconsents to proceed with the evaluation remotely. Noemy Hong APRN.CNP documented in [facility] Instructions* Patient Instructions* Noemy Hong APRN.CNP - 08/10/2023 2:55 PM EDT Images from the original note were not included. Bowel Preparation Instructions for: Miralax-Gatorade Preparations IF YOU DO NOT FOLLOW THESE DIRECTIONS, YOUR COLONOSCOPY WILL BE CANCELLED. Swan Instructions: Your bowel must be empty so that your doctor can clearly view your colon. Follow all of the instructions in this handout EXACTLY as they are written. Do NOT eat any solid food the ENTIRE day before your colonoscopy. Buy your bowel preparation at least 5 days before your colonoscopy. Four (4) Dulcolax laxative tablets containing 5mg of bisacodyl each (NOT Dulcolax stool softener) One (1) 8.3oz. bottle Miralax (238 grams) or generic equivalent 2 x 32oz. Bottles of Gatorade (NOT RED) Diabetic Patients: Use G2 (Gatorade 2) TRANSPORTATION on the Day of Your Exam A responsible adult MUST be present with you at Check In prior to your colonoscopy and REMAIN in the endoscopy area until you are discharged. You are NOT ALLOWED to drive, take a taxi or bus, or leave the Endoscopy Center ALONE. If you do not have a responsible retail delivery driver (family member or friend) withyou to take you home, your exam cannot be done with sedation and will be cancelled. Please bring a list of all of your current medications, including any Lwiz-ldx-Zcledno medications with you. Medications If you take insulin, diabetic medications or blood thinners such as Coumadin (warfarin), Plavix (clopidogrel), Ticlid (ticlopidine hydrochloride), Agrylin (anagrelide), Xarelto (Rivaroxaban), Pradaxa(Dabigatran), Eliquis (Apixaban), and Effient (Prasugrel). You MUST call the doctors who orders those medicines for instructions on altering the dosage before your colonoscopy. All other medications should be taken the day of the exam with a sip of water including ASPIRIN. Five (5) Days Before Your Colonoscopy Do NOT take medicines that stop diarrhea - such as Imodium, Kaopectate, or Pepto Bismol. Do NOT take fiber supplements - such as Metamucil, Citrucel, or Perdiem. Do NOT take products that contain iron - such as multi-vitamins (the label lists what is in the products). Three (3) Days Before Your Colonoscopy Do NOT eat high-fiber foods - such as popcorn, beans, seeds (flax, sunflower, quinoa), multigrain bread, nuts, salad/vegetables, or fresh and dried fruit. 1 Bowel Preparation Instructions for: Miralax-Gatorade Preparations One (1) Day Before Your Colonoscopy Only drink clear liquids the ENTIRE DAY before your colonoscopy. Do NOT eat any solid foods. Drink at least 8 ounces of clear liquids every hour after waking up. The clear liquids you can drink include: Clear Liquid (NO RED LIQUIDS) DO NOT DRINK Gatorade, Pedialyte or Powerade Clear broth or bouillon Coffee or tea (no milk or non-dairy creamer) Carbonated and non-carbonated soft drinks Johnnie-Aid or other fruit flavored drinks Strained fruit juices (no pulp) Jell-O, popsicles, hard candy Water Alcohol Milk or non-dairy creamers Noodles or vegetables in soup Juice with pulp Liquid you cannot see through Do not use tobacco/vaping products Mix 1/2 of Miralax bottle (119 grams) in each 32 ounces of Gatorade bottle until dissolved. Keep cool in the refrigerator. DO NOT ADD ICE. The bowel preparation solution will be consumed in two parts. Part 1 5:00 PM - Evening before your colonoscopy Take 4 Dulcolax tablets. 6 PM - Evening before your colonoscopy Drink 32 oz. of the mixed solution. Drink an 8 oz. glass of bowel preparation every 15 minutes for a total of 4 glasses. Fifteen (15) minutes later, drink an 8 oz. glass of of clear liquids every 15 minutes for a total of 2 glasses. You may continue to drink clear liquids till midnight. Part 2 On the day of your colonoscopy you may drink clear liquids up to (three) 3 hours prior to procedure. 4 1/2 hours before your colonoscopy Take another 32 oz. bottle of mixed solution. Drink an 8 oz. glass of bowel prep every 15 minutes for a total of 4 glasses. Fifteen (15) minutes later, drink an 8 oz. glass of clear liquids every 15 minutes for a total of 2glasses. You may continue to drink clear liquids up to (three) 3 hours before your exam. 2 09/2019 documented in this encounterOhio [facility]09-25-2023 Evaluation note* Encounter Date Diagnosis Assessment Notes Treatment Notes Treatment Clinical Notes Jul, GERD (gastroesophageal reflux disease) (ICD-10 - K21.9) She continues to have break through symptoms even despite taking the Pantoprazole twice per day for the last 2 weeks. ALso has been using Zofran once per day but continues to have times where she will vomit up bile. Notes that she did have an appt with Dr. Jean for these symtpoms and he did increase the Pantoprazole and did give her the ZOfran, but she would like a second opinion since her last scope was in 2019. She would like to be referred to [facility]. Referral placed. Will send a script for Zofran to take up to three times as needed. Jul, Wellness examination (ICD-10 - Z00.00) Personalized health advice was given to the beneficiary including a written plan for screenings discussed and provided. Advanced care planning reviewed and/or information given as requested. Additional counseling was provided here today in regards to general topics regarding health education were discussed in detail. All preventative issues were discussed including remaining a nonsmoker, colorectal screening, the importance of proper sleep for brain health maintenance, maintaining a heart-healthy balanced diet, recognizing and addressing signs of anxiety and depression, maintaining positive relationships with family and friends. [employer] Other 09-19-2023 Evaluation note* Encounter Date Diagnosis Assessment Notes Treatment Notes Treatment Clinical Notes Jul, GERD (gastroesophageal reflux disease) (ICD-10 - K21.9) [employer] Other 09-11-2023 Evaluation note* Encounter Date Diagnosis Assessment Notes Treatment Notes Treatment Clinical Notes Jul, Acute non-recurrent maxillary sinusitis (ICD-10 - J01.00) Will tx tody for bacterial sinusitis based on physical exam and duration of symptoms. Take antibiotic as prescribed, complete entire course of therapy even if symptoms resolve. May continues to take Mucinex and Flonase while taking Bromfed, but avoid any other OTC medications unless directed by a provider. Supportive care as directed, push fluids and rest, Tylenol/Motrin as directed for aches/fever, warm moist compress over sinuses several times a day, cool mist humidifier, nasal saline spray as directed. Symptoms should improve in the next 3 days, if symptoms persist follow up with PCP. Immediate eval for warning s/sx as discussed. Patient verbalizes understanding and is agreeable to treatment plan. Jul, Acute cough (ICD-10 - R05.1) Use inhaler as needed for cough, wheeze, or shortness of breath. If any worsening immediate evaluation in the ER. Jul, Tobacco abuse (ICD-10 - Z72.0) We discussed possible complications of smoking including risk of heart disease, stroke, lung disease, and increase risk of cancer. Your goal is to quit smoking. The availability, risks, and benefits of medication used to treat nicotine addiction as releveant to you have been discussed. We are working together to achieve these goals with the following plan; barriers to these goals have been discussed. You have been given relevant education handouts and a summary of your care plan. Your next follow-up visit for this problem is six months, we will continue to ask progress for quitting and willingness to quit at each appointment. [employer] Other 08-01-2023 Evaluation note* Encounter Date Diagnosis Assessment Notes Treatment Notes Treatment Clinical Notes May, GERD without esophagitis (ICD-10 - K21.9) Discussed acid reflux S/S in detail today. Discussed changing eating habits. Eat several small meals instead of two or three large meals. Wait 2 to 3 hours before you lie down. Chocolate, mint, and alcohol can make GERD worse. Spicy foods, foods that have a lot of acid and coffee can make GERD symptoms worse in some people. Anxiety and stress may make acid reflux worse. Discussed increasing PPI treatment therapy and then referral to ENT for further evaluation due to increased symptoms despite taking mediation as prescribed. Pt verbalizes understanding and agrees to plan of care. [employer] Other 03-30-2023 Evaluation note* Encounter Date Diagnosis Assessment Notes Treatment Notes Treatment Clinical Notes Dec, Acute non-recurrent maxillary sinusitis (ICD-10 - J01.00) Will tx tody for bacterial sinusitis based on physical exam and duration of symptoms. Take antibiotic as prescribed, complete entire course of therapy even if symptoms resolve. T OK to take OTC Mucinex (no D or DM) and Flonase . Supportive care as directed, push fluids and rest, Tylenol/Motrin as directed for aches/fever, warm moist compress over sinuses several times a day, cool mist humidifier, nasal saline spray as directed. Symptoms should improve in the next 3 days, if symptoms persist follow up with PCP. Immediate eval for warning s/sx as discussed. Patient verbalizes understanding and is agreeable to treatment plan. Dec, Bronchitis (ICD-10 - J40) Discussed diagnosis with patient. Patient to start antibiotic with food as prescribed. Finish entire course of antibiotic. Tessalon Pearles ordered to take as needed for cough. Increase fluids and rest. Udmk-rtt-nezyskd antipyretics as needed. Warning signs and symptoms reviewed with patient today. Patient to go immediately to the ER should she experience any of these. Patient to notify office should her symptoms persist and not improve. Patient verbalizes understanding and agrees to treatment plan. Dec, Acute vaginitis (ICD-10 - N76.0) Diflucan as needed if symptoms arise. Dec, Iron deficiency (ICD-10 - E61.1) Would like basic labs and will schedule an wellness when returns from vacation Dec, Vitamin D deficiency (ICD-10 - E55.9) Dec, Screening for metabolic disorder (ICD-10 - Z13.228) Dec, Screening for lipid disorders (ICD-10 - Z13.220) Dec, Screening for deficiency anemia (ICD-10 - Z13.0) Dec, Screening for thyroid disorder (ICD-10 - Z13.29) [employer] Other 03-18-2022 Evaluation note* Encounter Date Diagnosis Assessment Notes Treatment Notes Treatment Clinical Notes Dec, Sore throat (ICD-10 - J02.9) Strep throat is negative today. Discussed diagnosis with patient today. Most likely viral in nature. Will treat symptomatically. Increase fluids/rest. Ibuprofen PRN sore throat. Warm salt water gargles PRN. OTC sore throat medication relief PRN. Notify office should symptoms persist and not improve. Warning s/s reviewed with patient today. Patient to go immediately to the ER should she experience any of these. Patient verbalizes understanding and agree to treatment plan. [employer] Other 01-17-2022 Evaluation note* Encounter Date Diagnosis Assessment Notes Treatment Notes Treatment Clinical Notes Oct, Rupture of posterior cruciate ligament of left knee, initial encounter (ICD-10 - S83.522A) We discussed and demonstrated gentle motion exericses as well as quadriceps and hamstring strengthening exerices. Advised to wear a brace on the left knee for support. Order formal therapy Discussed that we often treat posterior cruciate ligament rupture without surgery. Discussed quad exercises. If she continues to have any form of instability that is unacceptable to her in daily life I would consider possible surgical treatment [employer] Other 01-12-2022 Evaluation note* Encounter Date Diagnosis Assessment Notes Treatment Notes Treatment Clinical Notes Oct, GERD without esophagitis (ICD-10 - K21.9) [employer] Other 10-11-2021 Evaluation note* Encounter Date Diagnosis Assessment Notes Treatment Notes Treatment Clinical Notes Jul, Abscess (ICD-10 - L02.91) Take antibiotic as directed, and complete full course even if symptoms are no longer present. Take ibuprofen/Tylenol as needed for pain and discomfort. Encouraged patient to use moist warm compresses on area to help facilitate draining. Wash area with warm soapy water twice daily, and pat dry. Cover area with bandage if potential exposure to dirty environment and while working. May leave area open to air when at home. Patient instructed to monitor symptoms closely. Patient should follow up if symptoms persist or worsen despite treatment, or if pt begins to develop fluctuant abscess that may need IandD. Patient verbalized understanding and agreement with treatment plan. [employer] Other 09-27-2021 Evaluation note* Encounter Date Diagnosis Assessment Notes Treatment Notes Treatment Clinical Notes Jul, Wellness examination (ICD-10 - Z00.00) Wellness performed today. Height, weight, BMI, and immunization records reviewed. Encouraged regular periods of exercise. Encouraged to eat a diet rich in plant-based foods and lean protein. Limit junk food and sources of excess calories. Jul, GERD without esophagitis (ICD-10 - K21.9) Stable. She denies any worsening of symptoms. She denies heartburn, nausea, vomiting, or abdominal pain. Last EGD was in 2018, and conintued showing esophagitis. Reviewed the EGD with patient. Patient to call if symptoms worsen or change may need referral to GI again if symptoms reoccur. She verblaizes understanding. Jul, BMI 36.0-36.9,adult (ICD-10 - Z68.36) [employer] Other 08-27-2021 NotePatient Education Materials Follows: Acute Knee Pain, Adult Many things can cause knee pain. Sometimes, knee pain is sudden (acute) and may be caused by damage, swelling, or irritation of the muscles and tissues that support your knee. The pain often goes away on its own with time and rest. If the pain does not go away, tests may be done to find out what is causing the pain. Follow these instructions at home: Pay attention to any changes in your symptoms. Take these actions to relieve your pain. If you have a knee sleeve or brace: ? Wear the sleeve or brace as told by your doctor. Remove it only as told by your doctor. ? Loosen the sleeve or brace if your toes: ? Tingle. ? Become numb. ? Turn cold and blue. ? Keep the sleeve or brace clean. ? If the sleeve or brace is not waterproof: ? Do not let it get wet. ? Cover it with a watertight covering when you take a bath or shower. Activity ? Rest your knee. ? Do not do things that cause pain. ? Avoid activities where both feet leave the ground at the same time (high- impact activities). Examples are running, jumping rope, and doing jumping jacks. ? Work with a physical therapist to make a safe exercise program, as told by your doctor. Managing pain, stiffness, and swelling ? If told, put ice on the knee: ? Put ice in a plastic bag. ? Place a towel between your skin and the bag. ? Leave the ice on for 20 minutes, 2?3 times a day. ? If told, put pressure (compression) on your injured knee to control swelling, give support, and help with discomfort. Compression may be done with an elastic bandage. General instructions ? Take all medicines only as told by your doctor. ? Raise (elevate) your knee while you are sitting or lying down. Make sure your knee is higher thanyour heart. ? Sleep with a pillow under your knee. ? Do not use any products that contain nicotine or tobacco. These include cigarettes, e-cigarettes,and chewing tobacco. These products may slow down healing. If you need help quitting, ask your doctor. ? If you are overweight, work with your doctor and a food expert (dietitian) to set goals to lose weight. Being overweight can make your knee hurt more. ? Keep all follow-up visits as told by your doctor. This is important. Contact a doctor if: ? The knee pain does not stop. ? The knee pain changes or gets worse. ? You have a fever along with knee pain. ? Your knee feels warm when you touch it. ? Your knee gives out or locks up. Get help right away if: ? Your knee swells, and the swelling gets worse. ? You cannot move your knee. ? You have very bad knee pain. Summary ? Many things can cause knee pain. The pain often goes away on its own with time and rest. ? Your doctor may do tests to find out the cause of the pain. ? Pay attention to any changes in your symptoms. Relieve your pain with rest, medicines, light activity, and use of ice. ? Get help right away if you cannot move your knee or your knee pain is very bad. This information is not intended to replace advice given to you by your health care provider. Make sure you discuss any questions you have with your health care provider. Document Revised: 03/29/2019 Document Reviewed: 03/29/2019 [employer] Patient Education ? 2019 [facility] History of Past illness Narrative* Problem Noted Date Diagnosed Date Resolved Date Headache 03/04/2020 03/04/2020 documented as of this encounter (statuses as of 08/10/2023) [facility] noteNo InformationNort [facility] Other Evaluation noteNo assessment information available [facility] Work Phone: Evaluation note* Diagnosis Loss of weight- Primary Marijuana use Cannabis abuse, unspecified Nausea and vomiting, unspecified vomiting type Gastroesophageal reflux disease, unspecified whether esophagitis present documented in this encounter [facility] note* Diagnosis Loss of weight Marijuana use Cannabis abuse, unspecified Nausea and vomiting, unspecified vomiting type Gastroesophageal reflux disease, unspecified whether esophagitis present documented in this encounter [facility] note* Diagnosis Onset Date Resolution Status Acute appendicitis acute [facility] Work Phone: Evaluation note* Diagnosis Onset Date Resolution Status Abnormal CT of the abdomen a cute Acute appendicitis acute Gastritis acute Left upper quadrant pain acu te [facility] Work Phone: History general Narrative - Reported* Type Description Date Medical History GERD Medical History Antral gastritis Medical History Hiatal hernia Medical History History of abnormal cervical Pap smear Medical History History of abnormal cervical Pap smear Surgical History Gall Bladder Removed 2006 Hospitalization History 1 child 2005 Hospitalization History Gall Bladder Removed 200 6 [employer] Other Reason for referral (narrative)* Outpatient Procedure (Routine) - Pending Review Specialty Diagnoses / Procedures Referred By Carlos Enrique t Referred To [facility] Diagnoses Loss of weight Procedures COLONOSCOPY DIAGNOSTIC COLONOSCOPY FLX DX W/COLLJ SPEC WHEN PFRMD Noemy Hong APRN.EMPLOYEE HEALTH NURSE [address] [place] [address] [address] Referral ID Status Reason Start Date Expiration Date Visits Requested Visits Authorized [id number] Pending Review Auto-Generat ed Referral 3 08/10/2024 1 1 * Outpatient Procedure (Routine) - Pending Review Specialty Diagnoses / Procedures Referred By Carlos Enrique t Referred To Contact [facility] Diagnoses Loss of weight Marijuana use Nausea and vomiting, unspecified vomiting type Gastroesophageal reflux disease, unspecified whether esophagitis present Procedures EGD DIAGNOSTIC ESOPHAGOGASTRODUODENOSC OPY TRANSORAL DIAGNOSTIC Noemy Hong APRN.CNP [address] [place] [address] [address] Referral ID Status Reason Start Date Expiration Date Visits Requested Visits Authorized [id number] Pending Review Auto-Generat ed Referral 3 08/10/2024 1 1 [facility] for referral (narrative)* Outpatient Procedure (Routine) - Closed Specialty Diagnoses / Procedures Referred By Carlos Enrique epstein Referred To Contact [facility] Diagnoses Loss of weight Procedures COLONOSCOPY DIAGNOSTIC COLONOSCOPY FLX DX W/COLLJ SPEC WHEN PFRMD Noemy Hong APRN.CNP [address] [facility] [facility] [place] [address] [address] Referral ID Status Reason Start Date Expiration Date V isits Requested Visits Authorized [id number] Closed Auto-Generate d Referral 08/31/2023 10/30/2023 1 1 * Outpatient Procedure (Routine) - Closed Specialty Diagnoses / Procedures Referred By Carlos Enrique t Referred To Contact [facility] Diagnoses Loss of weight Marijuana use Nausea and vomiting, unspecified vomiting type Gastroesophageal reflux disease, unspecified whether esophagitis present Procedures EGD DIAGNOSTIC ESOPHAGOGASTRODUODENOSC OPY TRANSORAL DIAGNOSTIC Noemy Hong APRN.CNP [address] [place] [address] [facility] [address] [place] [address] Referral ID Status Reason Start Date Expiration Date V isits Requested Visits Authorized [id number] Closed Auto-Generat ed Referral Patient Cleared - Admin/Chairm an/Director advise to proceed or did not respond 09/06/2023 10/30/2023 1 1 [facility] for visit Narrative* Outpatient Procedure (Routine) - Closed Specialty Diagnoses / Procedures Referred By Carlos Enrique epstein Referred To Contact [facility] Diagnoses Loss of weight Procedures COLONOSCOPY DIAGNOSTIC COLONOSCOPY FLX DX W/COLLJ SPEC WHEN PFRMD Noemy Hong APRN.CNP [address] [place] [address] [facility] [address] [place] [address] Referral ID Status Reason Start Date Expiration Date V isits Requested Visits Authorized [id number] Closed Auto-Generate d Referral 08/31/2023 10/30/2023 1 1 [facility] Summary Purpose Family History Relationship Condition Age at Onset Recorded Date/T emili father Hyperlipidemia Unknown Hypertension Unknown family member Unknown mother Hypertension Unknown sister Diabetes mellitus Unknown Advance Directives Advance Directive Response Recorded Date/ Time Advance Directives No August 3:09pm Reason for Referral Reason *FU 08/02 evaluate -- Would like referred to Silvio Quiroga-- [facility] -- last EGD was 2019 and has worsening symptoms of GERD , needs a repeat EGD Diagnosis 1 GERD (gastroesophage al reflux disease) (K21.9) Referral Organization [facility] Joseluis lópez Referring Provider First Name Erin Referring Provider Last Name Israel Referring Provider Specialty Nurse Pract itioner Referred Organization [facility] Referred Address [address] [place], [place],[address] Referred Provider Specialty Gastroentero logy Referral Priority Routine General Notes Sonja Anderson 09 / 11:21:14 AM >received today, attachments made, notes locked, referral faxed Reason evaluate -- may need EGD Diagnosis 1 GERD without esophag itis (K21.9) Referral Organization [facility] [place] Referring Provider First Name Erin Referring Provider Last Name Isreal Referring Provider Specialty Nurse Pract itioner Referred Organization [facility] Gastroenterolo gy Referred Provider Torres Ron Referred Address [address] ,[place], [place],[address] Referred Provider Specialty Gastroentero logy Referral Priority Routine General Notes Sonja Anderson 12:33:11 PM >received today, sent P2P Chief Complaint and Reason for Visit Chief Complaint Z13.228 Z13.220 Z00. 00 n/v Reason for Visit Acute appendicitis Chief Complaint Z13.228 Z13.220 Z00. 00 n/v Reason for Visit Abnormal CT of the a bdomen Acute appendicitis Gastritis Left upper quadrant pain Additional Source Comments INFORMATION SOURCE (unrecogn ized section and content) DATE CREATED AUTHOR 07/09/2021 [facility] DATE CREATED AUTHOR AUTHOR'S ORGANIZ ATION 07/10/2022 [facility] dical Specialist DATE CREATED AUTHOR AUTHOR'S ORGANIZ ATION 09/06/2023 [facility] DATE CREATED AUTHOR AUTHOR'S ORGANIZ ATION 07/14/2024 [facility] REASON FOR VISIT (unrecogniz ed section and content) Reason Comments GERD Care Teams (unrecognized sec tion and content) Team Status: Inactive Member Role Status Dates Erin Wood APRN [employer] TECHNICIAN-William Attending Provider Act marisol Doper Relationship Specialty Start Date End Date Erin Wood NP [address] [facility] [address] [place] [address] Referring Nurse Practitioner 07/28/23 Team Status: Active Member Role Status Dates Erin Wood APRN [employer] TECHNICIAN-C Primary Care Provider Active Team Status: Inactive Member Role Status Dates Erin Wood APRN [employer] TECHNICIAN-C Primary Care Provider, Attending Provider Active Start: July 12, 2024 End: July 12, 2024 Doper Relationship Specialty Start Date End Date Erin Wood NP Referring Nurse Practitioner 07/28/23 Team Status: Active Member Role Status Dates Erin ARELIS Wood [employer] TECHNICIAN-C Primary Care Provider Active Start: July 022023 Noman Naylor Jr, MD Emergency Provider Active Start: July 26, 2024 Gutierrez Clement DO Admit Provider, Atte nding Provider Active Start: July 26, 2024 Rodrigo Shi MD Other Provider Active Start: July 26, 2024 Team Status: Inactive Member Role Status Dates Erin Wood APRN [employer] TECHNICIAN-C Primary Care Provider Active Start: July 022023 End: July 26, 2024 Noman Naylor Jr, MD Emergency Provider Active Start: July 26, 2024 End: July 26, 2024 Rodrigo Shi MD Admit Provider, Atte nding Provider, Other Provider Active Start: July 26, 2024 End: July 26, 2024 Goals (unrecognized section and content) Goals may be documented in a n alternate section Source Comments (unrecognize d section and content) In the event this informatio n is protected by the Federal Confidentiality of Alcohol and Drug Abuse Patient Records regulations: The Federal rules restrict any use of the information to criminally investigate or prosecute any alcohol or drug abuse patient.[facility] the event this information is protected by the Federal Confidentiality of Alcohol and Drug Abuse Patient Records regulations: The Federal rules restrict any use of the information to criminally investigate or prosecute any alcohol or drug abuse patient.[facility] FOR RECORDS PERTAINING TO PATIENTS WHO ARE OR HAVE BEEN ENROLLED IN A CHEMICAL DEPENDENCY/SUBSTANCEABUSE PROGRAM, SOME INFORMATION MAY BE OMITTED. This clinical summary was aggregated from multiple sources. Caution should be exercised in using it in the provision of clinical care. This summary normalizes information from multiple sources, and as a consequence, information in this document may materially change the coding, format and clinical context of patient data. In addition, data may be omitted in some cases. CLINICAL DECISIONS SHOULD BE BASED ON THE PRIMARY CLINICAL RECORDS. [facility] provides no warranty or guarantee of the accuracy or completeness of information in this document.
--- NOTE | 2024-07-27 08:23 | ED.GENADUL1 ---
HPI HPI - General Adult General Chief complaint: Nausea/Vomiting/Diarrhea Stated complaint: NAUSEOUS , ABDOMINAL PAIN Time Seen by Provider: 07/27/24 08:18 Source: patient Mode of arrival: walk-in Limitations: no limitations History of Present Illness HPI narrative: 39-year-old female presents to the emergency department for nausea. She had been seen at another hospital 2 days ago and had a CAT scan that apparently suggested the possibility of appendicitis. She was admitted and seen by general surgery and her pain seems to have resolved and she was discharged home, she did not have any surgery. She states that there is a little bit of discomfort in the right lower part of her abdomen but she is nauseous as well. 2 days ago she went into the hospital thinking that she had food poisoning. Related Data Home Medications ?Medication ?Instructions ?Recorded ?Confirmed albuterol sulfate 90 mcg/actuation inhalation 08/25/23 aerosol inhaler ondansetron 4 mg disintegrating mg 08/25/23 tablet pantoprazole 40 mg tablet,delayed mg PO 08/25/23 release Allergies Allergy/AdvReac Type Severity Reaction Status Date / Time No Known Drug Allergies Allergy Verified 08/25/23 20:55 Opioid HPI Opioid Management Most Recent Opioid Data: Last Pain Scale 2 07/27/24 08:35 Review of Systems ROS Narrative A ten point review of systems is negative except as noted above. [facility] Medical History (Updated 07/27/24 @ 10:08 by Chris Varghese MD) FH: cholecystectomy ?Z83.79 - Family history of other diseases of the digestive system (ICD-10) Social History Little interest or pleasure in doing things: not at all Feeling down, depressed, or hopeless: not at all Exam Narrative Exam Narrative: Nurses note and vital signs reviewed and patient is not hypoxic. General: The patient appears well and in no apparent distress. Patient is resting comfortably on cart. Skin: Warm, dry, no pallor noted. There is no rash noted. Head: Normocephalic, atraumatic Eye: Normal conjunctiva, no drainage Ears, Nose, Mouth, and Throat: oral mucosa is moist. Nares patent. Cardiovascular: Regular Rate and Rhythm Respiratory: Patient is in no distress, no accessory muscle use, lungs are clear to auscultation, no wheezing, rales or rhonchi Back: non-tender GI: Soft no apparent tenderness on palpation even in the right lower quadrant Musculoskeletal: The patient has no evidence of calf tenderness, no pitting edema, symmetrical pulses noted bilaterally Neurological: A&O, normal speech Psychiatric: Cooperative Constitutional Vital Signs, click to edit/add: Last Vital Signs Temp 99.0 F 07/27/24 08:13 Pulse 80 07/27/24 08:13 Resp 18 07/27/24 08:13 BP 131/83 07/27/24 08:13 Pulse Ox 98 07/27/24 08:13 O2 Del Method Room Air 07/27/24 08:13 Course Vital Signs Vital signs: Vital Signs Temperature 99.0 F 07/27/24 08:13 Pulse Rate 80 07/27/24 08:13 Respiratory Rate 18 07/27/24 08:13 Blood Pressure 131/83 07/27/24 08:13 Pulse Oximetry 98 07/27/24 08:13 Oxygen Delivery Method Room Air 07/27/24 08:13 Temperature 99.0 F 07/27/24 08:13 Pulse Rate 80 07/27/24 08:13 Respiratory Rate 18 07/27/24 08:13 Blood Pressure 131/83 07/27/24 08:13 Pulse Oximetry 98 07/27/24 08:13 Oxygen Delivery Method Room Air 07/27/24 08:13 Medical Decision Making MDM Narrative Medical decision making narrative: Today's CT of the abdomen shows a normal appendix and no other acute findings. Findings are discussed with the patient and she is discharged home. White count also normal at 8.9. Treatment diagnosis and follow-up were discussed with the patient Differential Diagnosis Differential Diagnosis: Appendicitis, nonspecific abdominal pain, ovarian cyst Lab Data Lab results reviewed: Yes I reviewed the patient's lab results Labs: Lab Results 07/27/24 Range/Units 08:32 WBC 8.9 (4.0-11.0) 10^3/uL RBC 4.90 (4.20-5.40) 10^6/uL Hgb 15.5 (12.0-16.0) g/dL Hct 45.4 (36.0-48.0) % MCV 92.7 (81.0-99.0) fL MCH 31.6 (26.7-34.0) pg MCHC 34.1 (29.9-35.2) g/dL RDW 12.1 (11.0-15.0) % Plt Count 303 (150-450) 10^3/uL MPV 9.4 L (9.5-13.5) fL Neut % (Auto) 69.3 (43.0-75.0) % Lymph % (Auto) 23.2 (20.5-60.0) % Young % (Auto) 5.1 (1.7-12.0) % Eos % (Auto) 1.8 (0.9-7.0) % Baso % (Auto) 0.4 (0.2-2.0) % Neut # (Auto) 6.2 (1.4-6.5) 10^3/uL Lymph # (Auto) 2.1 (1.2-3.8) 10^3/uL Young # (Auto) 0.5 (0.3-0.8) 10^3/uL Eos # (Auto) 0.2 (0.0-0.7) 10^3/uL Baso # (Auto) 0.0 (0.0-0.1) 10^3/uL Abs Immat Gran (auto) 0.02 (0.00-0.03) 10^3/uL Imm/Tot Granulo (auto) 0.2 (0.0-0.5) % Sodium 138 (136-145) mmol/L Potassium 3.2 L (3.5-5.1) mmol/L Chloride 103 (98-107) mmol/L Carbon Dioxide 24.9 (21.0-32.0) mmol/L Anion Gap 13.3 BUN 10.0 (7.0-18.0) mg/dL Creatinine 0.77 (0.55-1.02) mg/dL Est GFR ( Amer) >60 (>=60) Est GFR (Non-Af Amer) >60 (>=60) BUN/Creatinine Ratio 13.0 Glucose 87 (74-106) mg/dL Calcium 8.8 (8.5-10.1) mg/dL Total Bilirubin 2.5 H (0.2-1.0) mg/dL Direct Bilirubin 0.3 H (0.0-0.2) mg/dL AST 13 L (15-37) U/L ALT 16 (14-59) U/L Alkaline Phosphatase 80 (46-116) U/L Total Protein 7.3 (6.4-8.2) g/dL Albumin 4.0 (3.4-5.0) g/dL Globulin 3.3 g/dL Albumin/Globulin Ratio 1.2 Amylase 40 (25-115) U/L Lipase 28.0 (16.0-77.0) U/L Serum HCG, Qual Negative (NEGATIVE) Urine Color Yellow (YELLOW) Urine Clarity Clear (CLEAR) Urine pH 6.0 (5.0-9.0) Ur Specific [place] 1.020 (1.005-1.025) Urine Protein Negative (NEG/TRACE) mg/dL Urine Glucose (UA) Negative (NEGATIVE) mg/dL Urine Ketones 15 A (NEGATIVE) mg/dL Urine Occult Blood Large A (NEGATIVE) Urine Nitrite Negative (NEGATIVE) Urine Bilirubin Negative (NEGATIVE) Urine Urobilinogen 0.2 (0.2-1.0) EU/dL Ur Leukocyte Esterase Negative (NEGATIVE) Urine RBC 5-10 A (0-2) #/HPF Urine WBC 0-2 A (NONE SEEN) #/HPF Ur Squamous Epith Cells Many A (NONE/RARE) #/LPF Urine Bacteria Moderate A (NONE SEEN) #/HPF Urine Mucus Moderate A (NONE SEEN) Ur Culture Indicated? No Imaging Data CT scan - abdomen: Radiologist's impression: ITS Impressions Abdomen/Pelvis CT 07/27/24 08:37 IMPRESSION: 1. Normal appendix. 2. Small fluid levels within the proximal and transverse colon; nonspecific. No obstruction, wall thickening, or appreciable inflammatory changes. 3. Collapsing follicle within left ovary of doubtful clinical significance. Electronically authenticated by: HECTOR SAENZ Date: 07/27/2024 09:56 Discharge Plan Discharge Chief Complaint: Nausea/Vomiting/Diarrhea Clinical Impression: Abdominal pain Patient Disposition: Home, Self-Care Time of Disposition Decision: 10:08 Condition: Good Mode of Transportation: Private Vehicle Prescriptions / Home Meds: No Action pantoprazole 40 mg tablet,delayed release (DR/EC) PO albuterol sulfate 90 mcg/actuation HFA aerosol inhaler INHALATION ondansetron 4 mg tablet,disintegrating Print Language: Mongolian Instructions: Abdominal Pain (ED) Referrals: BRENDA HUERTA [Primary Care Provider] - 1 week
--- NOTE | 2024-07-27 08:37 | CT_ITS ---
The [address] [address] Patient Name: JEFFREY YANG MRN: [id number] date: 1985 Sex: F Assigned Patient Location: ER Current Patient Location: Accession/Order Number: [id number] Exam Date: 07/27/2024 09:25 Report Date: 07/27/2024 09:56 At the request of: LIZA VAUGHAN Procedure: CT abdomen pelvis w con EXAMINATION: CT abdomen pelvis w con HISTORY: Rt abd pain; recent CT suggested appy, no sx COMPARISON: CT abdomen pelvis 08/25/2023 TECHNIQUE: Axial, Coronal, and Sagittal images were obtained without and/or with IV contrast as indicated by examination type. Dose reduction techniques were achieved by using automated exposure control and/or adjustment of mA and/or kV according to patient size and/or use of iterative reconstruction technique. FINDINGS: LUNG BASES: Stable appearance of 2 small 4 mm nodule within lateral left lower lobe. LIVER: No enlargement, atrophy, suspicious density, or significant focal lesion. BILIARY: Cholecystectomy. PANCREAS: No lesion, fluid collection, or abnormal duct dilatation. SPLEEN: No enlargement or focal lesion. ADRENALS: No mass or enlargement. KIDNEYS: Stable benign-appearing renal cysts bilaterally. No mass, obstruction, or calcification. BOWEL/MESENTERY: Fluid levels within proximal transverse colon. No visible mass, obstruction, or bowel wall thickening. Normal appendix. Unremarkable stomach and small bowel. AORTA/VASCULAR: No aneurysm or dissection. RETROPERITONEUM: No mass or adenopathy. LYMPH NODES: No adenopathy. URINARY BLADDER: No visible focal wall thickening, lesion, or calculus. PELVIC ORGANS: 1.8 cm rim enhancing hypodense structure within left ovary, likely collapsing cyst. No visible mass. Pelvic organs appropriate for patient age. ABDOMINAL WALL: No mass or hernia. BONES: No bony lesion or fracture. OTHER: Negative. CT/CT abdomen pelvis w con IMPRESSION: 1. Normal appendix. 2. Small fluid levels within the proximal and transverse colon; nonspecific. No obstruction, wall thickening, or appreciable inflammatory changes. 3. Collapsing follicle within left ovary of doubtful clinical significance. Electronically authenticated by: HECTOR SAENZ Date: 07/27/2024 09:56
[2024-07-27 08:47] LABS: Basophils Percent Auto 0.4 % (0.2-2.0); Eosinophils Absolute Auto 0.2 10^3/uL (0.0-0.7); Eosinophils Percent Auto 1.8 % (0.9-7.0); Hematocrit 45.4 % (36.0-48.0); Hemoglobin 15.5 g/dL (12.0-16.0); Immature Granulocytes Abs Auto 0.02 10^3/uL (0.00-0.03); Immature Granulocytes Pct Auto 0.2 % (0.0-0.5); Lymphocytes Absolute Auto 2.1 10^3/uL (1.2-3.8); Lymphocytes Percent Auto 23.2 % (20.5-60.0); Mean Corpuscular HGB Conc 34.1 g/dL (29.9-35.2); Mean Corpuscular Hemoglobin 31.6 pg (26.7-34.0); Mean Corpuscular Volume 92.7 fL (81.0-99.0); Mean Platelet Volume 9.4 fL (9.5-13.5); Monocytes Absolute Auto 0.5 10^3/uL (0.3-0.8); Monocytes Percent Auto 5.1 % (1.7-12.0); Neutrophils Absolute Auto 6.2 10^3/uL (1.4-6.5); Neutrophils Percent Auto 69.3 % (43.0-75.0); Platelet Count 303 10^3/uL (150-450); Red Cell Distribution Width 12.1 % (11.0-15.0); White Blood Count 8.9 10^3/uL (4.0-11.0)
[2024-07-27 08:57] LABS: HCG Qualitative NEGATIVE (NEGATIVE); Internal Control Within Normal Limits
[2024-07-27 09:02] LABS: Alanine Aminotransferase 16 U/L (14-59); Albumin Globulin Ratio 1.2; Alkaline Phosphatase 80 U/L (46-116); Amylase 40 U/L (25-115); Anion Gap 13.3; Aspartate Amino Transferase 13 U/L (15-37); Bilirubin Direct 0.3 mg/dL (0.0-0.2); Bilirubin Total 2.5 mg/dL (0.2-1.0); Calcium 8.8 mg/dL (8.5-10.1); Carbon Dioxide 24.9 mmol/L (21.0-32.0); Chloride 103 mmol/L (98-107); Estimated GFR (African America >60 (>=60); Estimated GFR (Non-African Ame >60 (>=60); Globulin 3.3 g/dL; Glucose 87 mg/dL (74-106); Potassium 3.2 mmol/L (3.5-5.1); Sodium 138 mmol/L (136-145); Total Protein 7.3 g/dL (6.4-8.2)
[2024-07-27 09:12] LABS: Bilirubin Urine NEGATIVE (NEGATIVE); Blood Urine LARGE (NEGATIVE); Clarity Urine CLEAR (CLEAR); Color Urine YELLOW (YELLOW); Glucose Urine UA NEGATIVE (NEGATIVE); Ketones Urine 15 mg/dL (NEGATIVE); Leukocyte Esterase Urine NEGATIVE (NEGATIVE); Nitrite Urine NEGATIVE (NEGATIVE); Protein Urine NEGATIVE (NEG/TRACE); Urobilinogen Urine 0.2 EU/dL (0.2-1.0)
[2024-07-27 09:23] LABS: WBC Urine 0-2 #/HPF (NONE SEEN)
[2024-07-27 09:24] LABS: Bacteria Urine MODERATE #/HPF (NONE SEEN); Mucus Urine MODERATE (NONE SEEN); Squamous Epithelial Cell Urine MANY #/LPF (NONE/RARE)
[2024-07-27 09:33] LABS: Urine Culture Indicated NO
== END 2024-07-27 10:13 | disposition home or self-care (01) ==
PROVIDERS: Emergency Provider Emergency Medicine; PCP Nurse Practitioner Family
DX: R10.9 Unspecified abdominal pain (principal)
CPT/HCPCS: 36415; 74177; 80048; 80076; 81001; 82150; 83690; 84703; 85025; 99285; Q9967